=== PATIENT | female | born 1970 | race Caucasian/White ===

== ENCOUNTER 2016-12-06 18:13 | Inpatient (IN) | payer OTHER ==
[~2016-12-06] VITALS: Ht 165.1 cm; Wt 61.2 kg
--- NOTE | ~2016-12-06 | ER ---
PATIENT'S NAME: DAMIAN [facility] AGE: 46 Y [address] ROOM: [place] [address] LOCATION: [facility] ADMIT DATE: 12/06/2016 ER/Outpatient Report DISCHARGE DATE: FAMILY PHYSICIAN: PHYSICIAN, UNKNOWN ATTENDING PHYSICIAN: Jhoan Gil TIME OF ARRIVAL: 1813 hours. TIME SEEN: The patient seen on arrival. CHIEF COMPLAINT: This is a 46-year-old female with a history of hypertension. History is limited and the patient was initially seen at [facility] after becoming unresponsive, she was found to have a pontine hemorrhage, and was sent here for Neurosurgical consultation. PHYSICAL EXAMINATION: GENERAL: Upon arrival, the patient was deeply comatose, unresponsive, and intubated. HEENT: Pupils were 2-mm and equal. There are no extraocular movements. LUNGS: She had diminished breath sounds in both bases. ABDOMEN: Soft. EXTREMITIES: Had no gross deformity. NEUROLOGIC: She had a slight posturing to painful stimulus; otherwise, no response. EMERGENCY DEPARTMENT COURSE: Dr. Gil was called, arrived promptly, evaluated the patient and made arrangements to take the patient to the OR. The patient was markedly hypertensive on arrival. A Cardene drip was initiated. ASSESSMENT: Intraparenchymal brain hemorrhage involving primarily the tashia with resultant coma. PLAN: Surgical management by Dr. Gil. LEELA MOISE MD PATIENT'S NAME: DAMIAN [facility] AGE: 46 Y [address] ROOM: [address] [address] LOCATION: [facility] ADMIT DATE: 12/06/2016 ER/Outpatient Report DISCHARGE DATE: FAMILY PHYSICIAN: PHYSICIAN, UNKNOWN ATTENDING PHYSICIAN: Jhoan Gil/darrin /[id number] d: 12/07/16 0431 t: 12/07/16 0455, OUTPATIENT REPORT
--- NOTE | ~2016-12-06 | ENPV ---
Vascular Lower Extremities DVT Study Procedure Demographics Patient Name GRECIA SALGADO Date of Study 12/08/2016 Patient Number [id number] Gender Female Date of 1970 Age 46 Visit Number [id number] Height Accession Number [id number] Weight Room Number G6214 BSA BMI Referring Louise Weeks Physician Physician Physician Ordering Physician Louise Perry Filter Tip Inspector Mercantile Reporter Lit Song BS, RT Conclusions Summary TECHNIQUE: The veins of the lower extremities on the right and the left were evaluated from the groin to the ankle using sen scale, compression, and augmentation. Venous hemodynamics were evaluated with color flow and spectral Doppler. FINDINGS: The deep veins of the legs bilaterally show normal color flow and compressibility without thrombosis. IMPRESSION: NEGATIVE BILATERAL LOWER EXTREMITY VENOUS DOPPLER. Procedure Type of Study: Veins:Lower Extremities DVT Study, Venous Duplex Lower Extremity Bilateral. Indications for Study:Stroke. Additional Indications:Immobility Patient Status:Routine. Study Location:Inpatient Portable. Technical Quality:Adequate visualization. Velocities are measured in cm/s ; Diameters are measured in cm Right Lower Extremities DVT Study Measurements Right 2D and Doppler Measurements + + + + +------+------+ + !Location !Visualized!Compressibility!Thrombosis!Signal!Reflux!Reflux ! ! ! ! ! ! ! !(sec) ! + + + + +------+------+ + !GSV Thigh !Yes !Yes !None !Phasic!No ! ! + + + + +------+------+ + !Common !Yes !Yes !None !Phasic!No ! ! !Femoral ! ! ! ! ! ! ! + + + + +------+------+ + !Prox !Yes !Yes !None !Phasic!No ! ! !Femoral ! ! ! ! ! ! ! + + + + +------+------+ + !Mid Femoral!Yes !Yes !None !Phasic!No ! ! + + + + +------+------+ + !Dist !Yes !Yes !None !Phasic!No ! ! !Femoral ! ! ! ! ! ! ! + + + + +------+------+ + !Popliteal !Yes !Yes !None !Phasic!No ! ! + + + + +------+------+ + !Gastroc !Yes !Yes !None !Phasic!No ! ! + + + + +------+------+ + !PTV !Yes !Yes !None !Phasic!No ! ! + + + + +------+------+ + !Peroneal !Yes !Yes !None !Phasic!No ! ! + + + + +------+------+ + Left Lower Extremities DVT Study Measurements Left 2D and Doppler Measurements + + + + +------+------+ + !Location !Visualized!Compressibility!Thrombosis!Signal!Reflux!Reflux ! ! ! ! ! ! ! !(sec) ! + + + + +------+------+ + !GSV Thigh !Yes !Yes !None !Phasic!No ! ! + + + + +------+------+ + !Common !Yes !Yes !None !Phasic!No ! ! !Femoral ! ! ! ! ! ! ! + + + + +------+------+ + !Prox !Yes !Yes !None !Phasic!No ! ! !Femoral ! ! ! ! ! ! ! + + + + +------+------+ + !Mid Femoral!Yes !Yes !None !Phasic!No ! ! + + + + +------+------+ + !Dist !Yes !Yes !None !Phasic!No ! ! !Femoral ! ! ! ! ! ! ! + + + + +------+------+ + !Popliteal !Yes !Yes !None !Phasic!No ! ! + + + + +------+------+ + !Gastroc !Yes !Yes !None !Phasic!No ! ! + + + + +------+------+ + !PTV !Yes !Yes !None !Phasic!No ! ! + + + + +------+------+ + !Peroneal !Yes !Yes !None !Phasic!No ! ! + + + + +------+------+ + Signature dtt: Olegario Khan dtd: 12/08/16 0826 Physician Self Edit
--- NOTE | ~2016-12-06 | CON ---
PATIENT'S NAME: DAMIAN [facility] AGE: 46 Y [address] ROOM: [place] [address] LOCATION: GICU ADMIT DATE: 12/06/2016 Consultation DISCHARGE DATE: FAMILY PHYSICIAN: PHYSICIAN, UNKNOWN ATTENDING PHYSICIAN: Jhoan Gil DATE OF CONSULTATION: 12/06/2016 REFERRING PHYSICIAN: Juan F Clark MD CONSULTATION NOTE Consultation for Neurointensive Care. REQUESTING PHYSICIAN: Consultation requested by Dr. Gil. CHIEF COMPLAINT: Intraparenchymal hemorrhage in the tashia and brainstem. HISTORY OF PRESENT ILLNESS: The patient is a 46-year-old female, who was transferred in from [facility] today. Apparently she was found unresponsive at the [facility] when agonal breathing. She has had a history of headaches and hypertension for which she had been not taking her medications for over a year. She was found to have a GCS about 5 on the scene and was found to have agonal breathing, heart rates in the 60s and 70s, and was taken into [facility] by the EMS where she was intubated there by a AIRPLANE NAVIGATOR. Her initial blood pressures there around upper 190s to over 110s. She was found to have this hemorrhage on CT and was flown to [facility]. She has had received some Versed, fentanyl, Zofran, labetalol, propofol, and mannitol prior to arrival. She was seen upon arrival in the emergency room. PAST MEDICAL HISTORY: Hypertension. ALLERGIES: PENICILLIN. MEDICATIONS: None. 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 PATIENT'S NAME: DAMIAN [facility] AGE: 46 Y [address] ROOM: [place] [id number] LOCATION: [facility] ADMIT DATE: 12/06/2016 Consultation DISCHARGE DATE: FAMILY PHYSICIAN: PHYSICIAN, UNKNOWN ATTENDING PHYSICIAN: Jhoan Gil REVIEW OF SYSTEMS: Unobtainable. PHYSICAL EXAMINATION: VITAL SIGNS: Heart rate is 46, blood pressure is 195/105, saturations of 100%, and respirations 16 on a ventilator. Temperature is around 96.0 degrees Fahrenheit tympanic. GENERAL: She has an endotracheal tube of 7.5 at about 20 cm at the lip. HEENT: Head; no signs of hematoma of her abrasions. NECK: No signs of JVD. Trachea is midline. Palpable off the sternal notch. CHEST: Clear to auscultation bilaterally. Bradycardic with S1 and S2. ABDOMEN: Soft. Nondistended. Hypoactive bowel sounds. EXTREMITIES: Trace to 1+ edema in the bilateral lower extremities. SKIN: Appears to be intact. Abrasions noted. NEUROLOGIC: Pupils are 3 and fixed. Not responsive to painful stimuli. There is no eye opening. No following of commands. IMAGING STUDIES: CT scan shows a large intraparenchymal hemorrhage centered at the tashia and brainstem. There is extra-axial extension of the 4th ventricle with mild hydrocephalus. LABORATORY DATA: INR is 1.1. PTT is 26. Troponins 0.03, CK-MB is 3.6. Sodium is 137, potassium 2.6, chloride 106, CO2 of 21, glucose is 198, creatinine 0.7, and BUN 17. White cell count 16, hemoglobin is 13, hematocrit is 41, and platelets are 246,000 with a negative test, and the urine drug screen was negative. These were all done at [facility]. ASSESSMENT AND PLAN: 1. Intraparenchymal hemorrhage centered around the brainstem and tashia. Probable hypertensive episode but could not exclude other causes such as the malformation, however, at this point, treatment will be the same, it appears to be a very devastating injury with the poor prognosis of any functional recovery or possibility of waking up. First thing we should do is to lower her blood pressure. We will start her on Cardene drip to try to maintain systolic blood pressures below 160 and ideally below 140. We may need some more medications as I improve her bradycardia. We will start this with the atropine 0.5 mg. Other medications to help with the blood pressure may include some hydralazine and Vasotec. Additionally it looks like this patient will be developing hydrocephalus so discussion of care with Dr. Gil will be to place an ICP monitor with external ventricular drain to help manage the developing hydrocephalus. 2. Hypertensive emergency. PATIENT'S NAME: GRECIA SLAGADO [facility] AGE: 46 Y [address] ROOM: [place] [address] LOCATION: GICU ADMIT DATE: 12/06/2016 Consultation DISCHARGE DATE: FAMILY PHYSICIAN: PHYSICIAN, UNKNOWN ATTENDING PHYSICIAN: Jhoan Gil 3. Acute respiratory failure. Hypoxic and hypercarbic. 4. Loss of consciousness. 5. Hypokalemia. 6. Hypothermia. We will work on rewarming her till we obtained normal thermia. 7. Prophylaxis will be GI prophylaxis and SCDs ,TEDS . There is no anticoagulation ready at this time. After surgery, she will be taken to the ICU. I spent about 40 minutes of critical care time, evaluating labs, managing blood pressure, developing plan of care, and examining the patient. JUAN F CLARK MD JJP/modl /[id number] d: 12/07/16 1531 t: 12/18/16 1712, CONSULTATION REPORT
--- NOTE | ~2016-12-06 | CON ---
PATIENT'S NAME: GRECIA SALGADO [facility] AGE: 46 Y [address] ROOM: [place] [address] LOCATION: GICU ADMIT DATE: 12/06/2016 Consultation DISCHARGE DATE: FAMILY PHYSICIAN: PHYSICIAN, UNKNOWN ATTENDING PHYSICIAN: Jhoan Gil DATE OF CONSULTATION: 12/16/2016 REFERRING PHYSICIAN: Juan F Clark MD CHIEF COMPLAINT/REASON FOR CONSULTATION: Request for medical management in the setting of catastrophic intracerebral hemorrhage and subsequent donor management. HISTORY OF PRESENTING ILLNESS: This 46-year-old white female with a longstanding history of hypertension, untreated, and chronic headaches, was admitted to [facility] on 12/06/2016 after transferred from [facility]. She collapsed and was found to have a large intracerebral hemorrhage. She was unresponsive and demonstrating agonal breathing. She was admitted here by Dr. Gil and underwent right frontal ventriculostomy and ICP monitor. Her clinical progress has been poor. She has been managed by neuro-intensive care and Neurosurgery. Despite aggressive supportive cares, her clinical condition has failed to improve significantly. She has developed hydrocephalus and has been persistently hypertensive. After discussion with the family, it was felt that the patient would not want to continue supportive cares and request for withdrawal of cares has been made. At the family's request and based on previous donor status, the organ retrieval service has also been involved. I have been requested to assist in medical management and supervision of donor management care. On my arrival to the floor, the patient is intubated and unresponsive. Dr. Taylor had been consulted for placement of central line and arterial line, and those have been completed. ALLERGIES: PENICILLIN. ILLNESSES: 1. Hypertension. 2. Migraine headaches. 3. Medical noncompliance. 4. Intraparenchymal brain stem bleed on 12/06/2016. CURRENT MEDICATIONS: 1. Propofol for sedation. PATIENT'S NAME: GRECIA SALGADO [facility] AGE: 46 Y [address] ROOM: [place] [address] LOCATION: [facility] ADMIT DATE: 12/06/2016 Consultation DISCHARGE DATE: FAMILY PHYSICIAN: PHYSICIAN, UNKNOWN ATTENDING PHYSICIAN: Jhoan Gil 2. DuoNeb q.4 hours. 3. Acetylcysteine 600 mg q.4 hours per feeding tube. 4. Labetalol 200 mg per feeding tube b.i.d. 5. Milk of magnesia 30 mL p.o. daily p.r.n. 6. Potassium 20 mEq per feeding tube q.8 hours. 7. Versed 1 to 2 mg IV p.r.n. sedation. 8. Lisinopril 10 mg per feeding tube daily. 9. Enalapril at 1.25 mg IV q.6 hours p.r.n. 10. Amlodipine 10 mg per feeding tube daily. 11. Albuterol 6 puffs per ETT q.6 hours p.r.n. 12. Atropine 0.5 mg IV q.hour p.r.n. 13. Phenylephrine for pressor support. 14. Fentanyl 50 mcg IV q.30 minutes p.r.n. pain or restlessness or discomfort. 15. Hydralazine 10 mg IV q.30 minutes p.r.n. systolic blood pressure greater than 180. 16. Labetalol 5 to 10 mg IV q.10 minutes p.r.n. systolic blood pressure greater than 180. 17. Acetaminophen 650 mg per feeding tube q.4 hours p.r.n. 18. Artificial tears p.r.n. 19. Nicardipine drip p.r.n. 20. Carafate 1 g per feeding tube q.6 hours. 21. Levaquin 750 mg IV daily x10 days. FAMILY HISTORY: Significant for heart disease in her mother. Father had COPD. 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 She has a significant history of smoking tobacco approximately 20 pack years. No significant history of alcohol use and no illicit drug use. She has some family support, which is fragmented. REVIEW OF SYSTEMS: Unobtainable secondary to the patient's obtunded status. OBJECTIVE: VITAL SIGNS: Temperature 101.1, pulse 96, respirations 26, blood pressure 120/58, weight is 66.1 kilos. GENERAL: She is ill appearing, lying on the bed, unresponsive, on the ventilator. SKIN: Supple, pink, warm, and dry. There are no obvious rashes. She does have some puncture site at the right neck with a little bit of exudative debris but no mike erythema. HEENT: Otherwise, normocephalic. Sclerae nonicteric. Pupils are equal, PATIENT'S NAME: GRECIA SALGADO [facility] AGE: 46 Y [address] ROOM: [id number] [place], [place] [address] LOCATION: [facility] ADMIT DATE: 12/06/2016 Consultation DISCHARGE DATE: FAMILY PHYSICIAN: PHYSICIAN, UNKNOWN ATTENDING PHYSICIAN: Jhoan Gil round, sluggish but reactive to light. Nasal turbinates normal in appearance. Oropharynx clear. Mucous membranes are pink and dry. The ET tube is in place. NECK: Supple. No masses or adenopathy. No thyromegaly. No JVD. CHEST: Wall is symmetrical. HEART: Regular with no significant murmurs. LUNGS: Coarse, diminished. Long expiratory phase. No wheezes, no crackles. No areas of consolidation. ABDOMEN: Soft, flat, nontender. Bowel sounds present. No mass or hepatosplenomegaly. and RECTAL: Not done. EXTREMITIES: Display no significant clubbing, cyanosis, or edema. NEUROLOGIC: Unresponsive. LABORATORY AND X-RAY DATA: CBC showed a white blood cell count 17.9, hemoglobin 11.4, hematocrit 33.7, platelets 265. Chemistries revealed a BUN and creatinine of 27 and 0.8 respectively, sodium and potassium of 138 and 4.2, chloride and CO2 are 106 and 25, calcium 8.8, glucose 125. AST and ALT of 51 and 93 respectively, bilirubin is 0.2. Albumin was low at 1.3. Hemoglobin A1c is pending. ABGs revealed a pH of 7.49, pCO2 of 34, pO2 of 149, base excess of 2.8. ASSESSMENT AND PLAN: 1. Intracerebral hemorrhage with hydrocephalus, status post ventricular shunt placement with catastrophic brain injury. The patient is currently hemodynamically stable on supportive care. Family has requested for withdrawal of cares, but to pursue organ donation. We will continue with ventilatory support and supportive medical measures in the interest of organ donation as requested by the family. We will follow along with the donor management and provide any necessary assistance. Tube feedings have been discontinued. We will await laboratory evaluations, encourage pulmonary hygiene and monitor. 2. Essential hypertension. Currently, adequately controlled. We will continue with the same regimen for now. 3. MSSA in the sputum. There is no radiographic evidence for pneumonia. Continue with levofloxacin. 4. Elevated liver function tests, mild. Etiology is unclear, but probably related to hypoperfusion. 5. Acute hypoxic respiratory failure. Continue ventilatory support as above and encourage good pulmonary hygiene in the interest of organ preservation. 6. End of life care. We will attempt to meet with family to discuss and provide ongoing support. The decision has been made for withdrawal of cares and organ donation as outlined above. We will continue to try to provide the necessary support for both family and donor management PATIENT'S NAME: GRECIA SALGADO [facility] AGE: 46 Y [address] ROOM: [address] [address] LOCATION: [facility] ADMIT DATE: 12/06/2016 Consultation DISCHARGE DATE: FAMILY PHYSICIAN: PHYSICIAN, UNKNOWN ATTENDING PHYSICIAN: Jhoan Gil services. MD CHIKIS RICARDO/modl /[id number] d: 12/17/162 t: 12/17/16 2019, CONSULTATION REPORT
--- NOTE | ~2016-12-06 | ENPV ---
Vascular Lower Extremities DVT Study Procedure Demographics Patient Name GRECIA SALGADO Date of Study 12/15/2016 Patient Number [id number] Gender Female Date of 1970 Age 46 Visit Number [id number] Height Accession Number [id number] Weight Room Number G6214 BSA BMI Referring Louise Perry MD Interpreting Alphonso Bledsoe MD Physician Physician Physician Ordering Physician Louise Perry Glass Cut Off Tender Supervisor Plate Forming Lit Song BS, RT Conclusions Summary No evidence of deep vein thrombosis or superficial thrombophlebitis in the lower extremities bilaterally . Procedure Type of Study: Veins:Lower Extremities DVT Study, Venous Duplex Lower Extremity Bilateral. Indications for Study:Extended bedrest. Additional Indications:Immobility Patient Status:Routine. Study Location:Inpatient Portable. Technical Quality:Adequate visualization. Velocities are measured in cm/s ; Diameters are measured in cm Right Lower Extremities DVT Study Measurements Right 2D and Doppler Measurements + + + + +------+------+ + !Location !Visualized!Compressibility!Thrombosis!Signal!Reflux!Reflux ! ! ! ! ! ! ! !(sec) ! + + + + +------+------+ + !GSV Thigh !Yes !Yes !None !Phasic!No ! ! + + + + +------+------+ + !Common !Yes !Yes !None !Phasic!No ! ! !Femoral ! ! ! ! ! ! ! + + + + +------+------+ + !Prox !Yes !Yes !None !Phasic!No ! ! !Femoral ! ! ! ! ! ! ! + + + + +------+------+ + !Mid Femoral!Yes !Yes !None !Phasic!No ! ! + + + + +------+------+ + !Dist !Yes !Yes !None !Phasic!No ! ! !Femoral ! ! ! ! ! ! ! + + + + +------+------+ + !Popliteal !Yes !Yes !None !Phasic!No ! ! + + + + +------+------+ + !Gastroc !Yes !Yes !None !Phasic!No ! ! + + + + +------+------+ + !PTV !Yes !Yes !None !Phasic!No ! ! + + + + +------+------+ + !Peroneal !Yes !Yes !None !Phasic!No ! ! + + + + +------+------+ + Left Lower Extremities DVT Study Measurements Left 2D and Doppler Measurements + + + + +------+------+ + !Location !Visualized!Compressibility!Thrombosis!Signal!Reflux!Reflux ! ! ! ! ! ! ! !(sec) ! + + + + +------+------+ + !GSV Thigh !Yes !Yes !None !Phasic!No ! ! + + + + +------+------+ + !Common !Yes !Yes !None !Phasic!No ! ! !Femoral ! ! ! ! ! ! ! + + + + +------+------+ + !Prox !Yes !Yes !None !Phasic!No ! ! !Femoral ! ! ! ! ! ! ! + + + + +------+------+ + !Mid Femoral!Yes !Yes !None !Phasic!No ! ! + + + + +------+------+ + !Dist !Yes !Yes !None !Phasic!No ! ! !Femoral ! ! ! ! ! ! ! + + + + +------+------+ + !Popliteal !Yes !Yes !None !Phasic!No ! ! + + + + +------+------+ + !Gastroc !Yes !Yes !None !Phasic!No ! ! + + + + +------+------+ + !PTV !Yes !Yes !None !Phasic!No ! ! + + + + +------+------+ + !Peroneal !Yes !Yes !None !Phasic!No ! ! + + + + +------+------+ + Signature dtt: BRYCE GRAY dtd: 12/15/16 [facility] Physician Saurav Antonio
--- NOTE | ~2016-12-06 | HP ---
PATIENT'S NAME: GRECIA SALGADO [facility] AGE: 46 Y [address] 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 Prior to that however, she has had a 2-week history of severe headaches and she has got a history of hypertension, but was not taking antihypertensive medications primarily because she says she could not afford it. When the EMT got to the [facility] where she was, she was completely unresponsive, they went ahead and intubated her, [place] Coma Score was recorded initially as 5, and was taken to the emergency room in [place]. On getting to the emergency room, investigations carried out included a CT scan of the brain, which showed a brainstem hemorrhage. She was given half-a-gram of mannitol per kg body weight and sent here. PAST MEDICAL HISTORY: Apart from hypertension, there was nothing else that we could get. FAMILY HISTORY: Could not be carried out primarily because of the neurological status. SOCIAL HISTORY: Could not be carried out primarily because of the neurological status. REVIEW OF SYSTEMS: Could not be carried out primarily because of the neurological status. PHYSICAL EXAMINATION: VITAL SIGNS: In the emergency room, she is a 46-year-old lady who was being bagged, blood pressure was 195/105, and the pulse was 47. HEENT: The pupils were 1-mm, they reacted sluggishly to light, they were equal. NECK: No bruits audible in the neck. No masses palpable in the neck. CHEST: Clear. HEART: Rate was regular; although, she was bradycardic. NEUROLOGICAL: Examination was limited. Sensory exam, we could not get one because of her neurological deficits. Motor response, she will withdraw both lower extremities to painful stimuli and in the upper extremities she did not [facility] 46 Y [address] ROOM: [address] [address] LOCATION: [facility] ADMIT DATE: 12/06/2016 History & Physical DISCHARGE DATE: FAMILY PHYSICIAN: PHYSICIAN, UNKNOWN ATTENDING PHYSICIAN: Jhoan Gil have any response in the upper limbs, but the lower limbs were extended. LABORATORY DATA: I reviewed the CT scan of the brain. The CT scan of the brain was just massive brainstem hemorrhage with early hydrocephalus. RECOMMENDATION: My recommendation is that we should just go ahead and put a ventricular drain in, which will help us not only to control the intracranial pressure if it goes up, but also to manage the hydrocephalus if it gets worse. I discussed the situation with the sister and her mother and they both agree that we should go ahead and carry out the procedure. MD SUSANNA BROWN/darrin /[id number] D: [id number] T: [id number] HISTORY & PHYSICAL
--- NOTE | ~2016-12-06 | OR ---
PATIENT'S NAME: DAMIAN [facility] AGE: 46 Y [address] ROOM: [place] [address] LOCATION: [facility] ADMIT DATE: 12/06/2016 OR/Procedure Report DISCHARGE DATE: FAMILY PHYSICIAN: PHYSICIAN, UNKNOWN ATTENDING PHYSICIAN: Jhoan Gil SURGEON: David Loera MD GRAIN RECEIVER: DATE OF PROCEDURE: 12/16/2016 PROCEDURES: 1. Fiberoptic bronchoscopy with bronchoalveolar lavage. 2. Left internal jugular central venous catheter insertion. 3. Left radial arterial line insertion. CONSENT: The risks and benefits of the procedure were discussed with her next of kin. He agrees to proceed with the procedures. PROCEDURES IN DETAIL: PROCEDURE #1: Fiberoptic bronchoscopy: Bronchoscope was introduced through a size 7 ET tube into the tracheobronchial tree. The patient tolerated the procedure well. There were no immediate complications. FINDINGS: The visualized portion of the trachea appears normal in caliber. There were no endobronchial lesions or secretions. The eula is sharp, nonsplayed. The right mainstem is patent. There were thick white secretions, which were suctioned out, the right upper lobe takeoff is about 1.5-2 cm, probably 1.75 cm from the eula. The right upper lobe consists of 3 segments anatomically correct. There are white secretions. The bronchus intermedius is patent. The right middle lobe was anatomically correct with 2 segments. There are white secretions which were suctioned out and the right lower lobe was inspected 5 segments. There are white loose secretions, which were suctioned out. The mucosa in the right lower lobe seems to be inflamed and reddish more so than the rest of the right lung. The left mainstem is patent. There are no endobronchial lesions or secretions. The left upper lobe had slight loose white secretions which were suctioned out. The lingula is patent with no endobronchial lesions or secretions. The left lower lobe was inspected. There were no endobronchial lesions or secretions, which were anatomically correct. After the bronchoscope was wedged into the right lower lobe anterior basal segment, a 10 mL lavage was done, about 7 mL were obtained and sent to Gram stain and cultures. The bronchoscope was withdrawn. There were no immediate complications. PROCEDURE #2: Left internal jugular central venous catheter insertion. PATIENT'S NAME: DAMIAN [facility] AGE: 46 Y [address] ROOM: [facility] [place] [facility] [place], [place] [address] LOCATION: [facility] ADMIT DATE: 12/06/2016 OR/Procedure Report DISCHARGE DATE: FAMILY PHYSICIAN: PHYSICIAN, UNKNOWN ATTENDING PHYSICIAN: Jhoan Gil CONSENT: As above. DESCRIPTION OF PROCEDURE: After the informed consent, proper time-out was called by me and the nursing staff. The patient was put in Trendelenburg position. The left internal jugular area was prepped and draped in the usual fashion, under real-time ultrasound. The area was infiltrated with 1% lidocaine. After that, under real-time ultrasound, using a Spacebikiniq machine, the left internal jugular vein was punctured using an 18-gauge needle. A 0.035 J-tipped wire was inserted through the needle without any resistance, then it was removed and 5-Turkish soft tissue dilator was advanced over the wire after a small hugo was made in the skin. The dilator was removed and the catheter was inserted over the wire without any resistance. The 3 ports of the catheter was aspirated for dark venous blood and flushed with sterile saline. The catheter was sutured in place. There were no immediate complications. Chest x-ray is pending. PROCEDURE #3: Left radial arterial line placement. DESCRIPTION OF PROCEDURE: After the informed consent, proper time-out was called by me and the nursing staff. The left radial area was prepped and draped in the usual fashion. Under real time ultrasound, the 18-gauge Arrow kit catheter was introduced into the radial artery. Good blood return was obtained and the catheter was advanced easily. The catheter was hooked up to the monitor, which revealed good waveform and good blood return. The patient tolerated the procedure well. There were no immediate complications. Thank you for allowing me to participate in the care of this patient. MD ANNIE CHEN/darrin /[id number] d: 12/17/16 0243 t: 07/05/17 1007, OPERATIVE SUMMARY
--- NOTE | ~2016-12-06 | OR ---
PATIENT'S NAME: GRECIA SALGADO [facility] AGE: 46 Y [address] 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 OPERATION PROPOSED AND PERFORMED: Right frontal ventriculostomy and ICP monitor. DESCRIPTION OF PROCEDURE: Under general anesthesia, the patient was positioned supine. The right frontal region was shaved, prepped, and draped in the usual fashion. Next, a linear incision was then carried out along the midpupillary line just anterior to the coronal suture. The pericranium was incised and reflected. A twist drill hole was carried out at this site. The dura was cauterized and incised. Next, a Codman ICP and ventricular catheter combination was passed through a separate stab wound and brought out through the incision in the right frontal region. After incising the dura, the ventricular catheter was then passed into the lateral ventricle. Prior to doing that, however, we had zeroed the system. Next, the ventricular catheter was then connected to a drainage bag. Initial intracranial pressure after we drained some CSF off was 6 cm of water. The wound was then irrigated with normal saline and closed in a single layer using 3-0 Prolene. The ventricular catheter was kept in position by putting a suture through the scalp and turning it around the catheter to put it in position. The patient tolerated the procedure well and was taken to the intensive care unit. Postoperatively, she is going to be managed in the ICU by Dr. Clark, and the primary aim would be to: 1. Keep the ICP normal. 2. Drain the ventricles if the ICP goes up, or primarily keep the drainage bag at 10 cm. If the ICP goes beyond 10, it will drain. 3. Control her blood pressure to keep it at least to be not more than 150 systolic. I should point out that she is already on Cardene drip. PATIENT'S NAME: GRECIA SALGADO [facility] AGE: 46 Y [address] ROOM: [id number] [place] [id number] LOCATION: [facility]ICU ADMIT DATE: 12/06/2016 OR/Procedure Report DISCHARGE DATE: FAMILY PHYSICIAN: PHYSICIAN, UNKNOWN ATTENDING PHYSICIAN: Jhoan Gil MD SUSANNA BROWN/darrin /[id number] d: 12/07/16100 t: 12/11/16 1517, OPERATIVE SUMMARY
--- NOTE | ~2016-12-06 | DS ---
PATIENT'S NAME: GRECIA SALGADO [facility] AGE: 46 Y [address] 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 On the day of admission, she suddenly collapsed, and was brought to the Emergency Room in [place] from where she was then transported here. a relevant part of_her_past medical history is that she has been complaining of severe headaches for two weeks, and she has a history of hypertension, but was not taking any antihypertensive medications because she said she could not afford the medication. Prior to being transported here from [place], she was given half a gram of mannitol per kilogram of body weight, intubated, and ventilated. At the time of assessment here, she had a withdrawal response to painful stimuli in the lower extremities, but was flaccid in the upper extremities. A CT scan of the brain that was done showed a hemorrhage in the brainstem with __acute hydrocephalus. We, therefore, took her straight to the Operating Room, put in a ventricular drain with ICP monitoring, and transferred her to the Intensive Care Unit, where we monitored her intracranial pressure and we were able to easily control this by draining CSF when indicated. She really did not make any progress during her stay in the Intensive Care Unit. The best we got was a decerebrate response in the upper extremities and withdrawal response in the lower extremities. Eventually, the family decided to take her off the ventilator, and when this was done, she . FINAL DIAGNOSES: 1. Hypertensive hemorrhage of the brain involving the brainstem. 2. Acute hydrocephalus. MD SUSANNA BROWN/darrin /[id number] d: 12/27/16 2342 t: 01/30/17 1221, DISCHARGE SUMMARY
[2016-12-06 22:25] LABS: HEMATOCRIT 36.3 % (33.0-46.0); HEMOGLOBIN 13.2 g/dL (10.0-15.0)
[2016-12-06 22:26] LABS: BICARBONATE 25.4 mmol/L (18.0-23.0); PCO2 41 mmHg (35-45); PO2 140 mmHg (80-90)
[2016-12-06 22:42] LABS: ALBUMIN 2.2 gm/dL (3.5-5.0); BLOOD UREA NITROGEN 13 mg/dL (6-24); CHLORIDE 114 mMol/L (96-110); CO2 24 mMol/L (22-32); CREATININE 0.7 mg/dL (0.5-1.1); ESTIMATED GFR (MDRD EQUATION) > 60; PHOSPHORUS 4.2 mg/dL (2.5-4.9)
[2016-12-06] MEDS ORDERED: EXCEDRIN EXTRA1 TAB PO (22:42)
[2016-12-06 22:43] LABS: ANION GAP 10.8 (10.0-19.0); CALCIUM 7.2 mg/dL (8.5-10.5); POTASSIUM 2.8 mMol/L (3.7-5.1); SODIUM 146 mMol/L (135-145)
[2016-12-07 04:31] LABS: BICARBONATE 24.7 mmol/L (18.0-23.0); PCO2 34 mmHg (35-45); PO2 131 mmHg (80-90)
[2016-12-07 04:34] LABS: BASOPHIL # 0.1 K/uL (0.0-0.2); BASOPHIL % 0.5 %; EOSINOPHIL # 0.1 K/uL (0.0-0.5); EOSINOPHIL % 0.4 %; HEMATOCRIT 36.1 % (33.0-46.0); HEMOGLOBIN 13.1 g/dL (10.0-15.0); IMMATURE GRANULOCYTE # 0.1 K/uL (0.0-0.3); IMMATURE GRANULOCYTE % 0.5 %; LYMPHOCYTE # 1.7 K/uL (0.8-4.0); LYMPHOCYTE % 10.2 %; MCH 31.5 pg (27.0-34.0); MCHC 36.3 gm/dL (32.0-36.5); MCV 86.8 fl (83.0-98.0); MONOCYTE # 1.6 K/uL (0.0-1.0); MONOCYTE % 9.2 %; MPV 12.2 fl (9.4-12.4); NEUTROPHIL # (ANC) 13.3 K/uL (1.8-7.8); NEUTROPHIL % 79.2 %; NRBC % 0 /100WBC (0-0.00); PLATELET COUNT 226 K/uL (150-450); RBC 4.16 M/uL (3.50-5.50); RDW-CV 12.7 % (11.9-14.6)
[2016-12-07 04:42] LABS: INR - (THERAPEUTIC) 1.06 (0.92-1.07); PROTIME 11.1 SECONDS (9.8-11.4)
[2016-12-07 04:49] LABS: ALBUMIN 2.2 gm/dL (3.5-5.0); ALK PHOS 63 IU/L (33-138); ALT 18 IU/L (12-78); ANION GAP 11.4 (10.0-19.0); AST 14 IU/L (10-40); BLOOD UREA NITROGEN 13 mg/dL (6-24); CALCIUM 7.2 mg/dL (8.5-10.5); CHLORIDE 117 mMol/L (96-110); CO2 24 mMol/L (22-32); CREATININE 0.7 mg/dL (0.5-1.1); ESTIMATED GFR (MDRD EQUATION) > 60; POTASSIUM 3.4 mMol/L (3.7-5.1); SODIUM 149 mMol/L (135-145); TOTAL BILIRUBIN 0.2 mg/dL (0.0-1.5); TOTAL PROTEIN 4.6 g/dL (6.0-8.4); WBC 16.8 K/uL (4.0-11.0)
--- NOTE | 2016-12-07 05:30 | NUR ---
PT. ARRIVED TO ICU INTUBATED AT 2014. PT. INTUBATED WITH 7.5 ETT 21 @ LIP, SECURED WITH ETAD. FIO2 DOWN TO 30%. BREATH SOUNDS ARE CLEAR AND DIMINISHED T/O. ETCO2 31-36. SUCTIONED A SCANT AMOUNT OF CLEAR SECRETIONS. WILL CONTINUE TO FOLLOW UNTIL FURTHER NOTICE.
--- NOTE | 2016-12-07 05:56 | NUR ---
Significant Event: Patient sedated/comatose. Does not open eyes. Pupils 3mm/brisk bilaterally. Decerebrate posturing in BUEs. BLEs abnormal flexion and occasional extension. Spontaneous cough noted. No gag. ICP/ventric intact. Ventric open at all times at [id number], currently draining blood-tinged csf. ICP <10 throughout shift. HR 40-70, atropine given x1. BP hypertensive. 10mg labetolol given x4, hydralazine given x2. Cardene drip started this shift, currently at 3mg/hr. Afebrile. LE edema noted. A/C on vent, lung sounds diminished. Bowel sounds rare, OG to LIS, no bm this shift. Nuñez intact, dependant bag changed to urometer this shift. R)IJ, L)arterial line, PIV x2 intact. 40meq kcl given this shift. Propofol for sedation, currently at 20mcg/kg/min. Follow up: Continue hourly monitoring.
--- NOTE | 2016-12-07 16:18 | NUR ---
Significant Event: Patient remains intubated without sedation. Propofol off at 1000. Does not follow commands. Extends in BUE and withdraws in BLE. LLE extends occasionally. ICP/Ventric intact. ICP 4-10. Ventric drain 88ml CSF clear to pink tinged. [id number]. Cardiazem off at 1600. HR 60's. SBP 120-150. Gave PRN fentanylx1, prn hydralazine x2, and PRN vasotec x1. Lungs asclutated clear/diminished. Active bowel sounds. Osmolite 1.5 started at 1430 at 10ml/h, to reach a goal rate of 50ml/h. No residual. No BM. Afebrile.Accuchecks q4h, to monitor only: 119,106,112. Follow up:Continue. Increase TF by 10ml 4h.
[2016-12-07 16:36] LABS: BLOOD UREA NITROGEN 14 mg/dL (6-24); CO2 27 mMol/L (22-32); CREATININE 0.8 mg/dL (0.5-1.1); ESTIMATED GFR (MDRD EQUATION) > 60; POTASSIUM 3.3 mMol/L (3.7-5.1)
[2016-12-07 16:37] LABS: ANION GAP 9.3 (10.0-19.0); CALCIUM 7.3 mg/dL (8.5-10.5); CHLORIDE 118 mMol/L (96-110); SODIUM 151 mMol/L (135-145)
[2016-12-08 04:45] LABS: BICARBONATE 23.2 mmol/L (18.0-23.0); LACTATE 0.8 mEq/L (0.50-1.60); PCO2 35 mmHg (35-45); PO2 133 mmHg (80-90)
[2016-12-08 04:51] LABS: BASOPHIL # 0.1 K/uL (0.0-0.2); BASOPHIL % 0.5 %; EOSINOPHIL % 0.3 %; HEMATOCRIT 34.6 % (33.0-46.0); HEMOGLOBIN 11.6 g/dL (10.0-15.0); IMMATURE GRANULOCYTE # 0.1 K/uL (0.0-0.3); IMMATURE GRANULOCYTE % 0.5 %; LYMPHOCYTE # 0.9 K/uL (0.8-4.0); LYMPHOCYTE % 6.7 %; MCH 30.6 pg (27.0-34.0); MCHC 33.5 gm/dL (32.0-36.5); MONOCYTE % 7.5 %; MPV 12.2 fl (9.4-12.4); NEUTROPHIL # (ANC) 11.5 K/uL (1.8-7.8); NEUTROPHIL % 84.5 %; NRBC % 0 /100WBC (0-0.00); RBC 3.79 M/uL (3.50-5.50); RDW-CV 13.2 % (11.9-14.6); WBC 13.6 K/uL (4.0-11.0)
[2016-12-08 04:59] LABS: INR - (THERAPEUTIC) 1.14 (0.92-1.07)
[2016-12-08 05:09] LABS: ALBUMIN 1.7 gm/dL (3.5-5.0); ALK PHOS 53 IU/L (33-138); ALT 17 IU/L (12-78); ANION GAP 7.7 (10.0-19.0); AST 21 IU/L (10-40); BLOOD UREA NITROGEN 17 mg/dL (6-24); CALCIUM 7.4 mg/dL (8.5-10.5); CHLORIDE 123 mMol/L (96-110); CO2 23 mMol/L (22-32); CREATININE 0.6 mg/dL (0.5-1.1); ESTIMATED GFR (MDRD EQUATION) > 60; MCV 91.3 fl (83.0-98.0); PLATELET COUNT 158 K/uL (150-450); POTASSIUM 3.7 mMol/L (3.7-5.1); SODIUM 150 mMol/L (135-145); TOTAL BILIRUBIN 0.3 mg/dL (0.0-1.5); TOTAL PROTEIN 4.4 g/dL (6.0-8.4)
--- NOTE | 2016-12-08 05:24 | NUR ---
Significant Event: Pt had some difficult to control hypertension in the beginning of the shift, Propofol gtt restarted to help control awakeness of patient and htn, along with significant overbreathing of the vent. Cardene was weaned down to 0.5mg/hr. x2 prn Labetalol IVP given. x1 dose of prn vasotec given. Pt continues to extend to upper extremties, and have abnormal flexion of bilater lower extrem. She does not open her eyes, or follow any commands. She does overbreathe vent slightly now, Family updated twice this shift. updated in the noc that sedation was restarted. Follow up: Continue
--- NOTE | 2016-12-08 05:47 | NUR ---
PT. ON VENT AT 30% WITH SATS 95-98%. ETCO2 28-34. BREATH SOUNDS ARE CLEAR AND DIMINISHED T/O. SUCTIONED A SMALL AMOUNT OF THICK CREAM SECRETIONS. WILL CONTINUE TO FOLLOW UNTIL FURTHER NOTICE.
--- NOTE | 2016-12-08 09:54 | NUR ---
A-SCREENED D/T NEW ADMIT TO ICU INTUBATED AND SEDATED WITH 3.8 ML/HR PROPOFOL (PROVIDING 91 LIPID KCALS) ICP/VENTRIC; VENTRIC OPEN ALL THE TIME. (+)BS HT: 65 IN. WT: 66.4 KG. BMI: 23.9 LABS: NA 150, K+ 3.7, GLU 144, BUN 17, DENSITOMETRIST 0.6, ALB 1.7 MEDS: ATROPINE, SUBLIMAZE, APRESOLINE, TRANDATE, CARAFATE DIET RX: NPO; 50 ML/HR OSMOLITE 1.5. TF PROVIDING 1800 KCALS, 75 GM PROTEIN, AND 914 ML FREE WATER EST NUTR NEEDS: 8799-1132 KCALS (25-30 KCALS/KG) 66-86 GM PROTEIN (1.0-1.3 GM/KG) 1 ML FLUID/KCAL D-AT NUTRITION RISK W/DIFF. SWALLOWING R/T VENT SUPPORT AEB NEED FOR ENTERAL NUTRITION I-CONTINUE W/CURRENT TF RATE M/E-GOAL: PT TO TOLERATE TF WITHOUT DIFFICULTY 1)F/U TF AND POC IN 2-3 DAYS 2)ASSIST NEEDED
[2016-12-08 16:58] LABS: BLOOD UREA NITROGEN 18 mg/dL (6-24); CALCIUM 7.8 mg/dL (8.5-10.5); CO2 21 mMol/L (22-32); CREATININE 0.7 mg/dL (0.5-1.1); ESTIMATED GFR (MDRD EQUATION) > 60; POTASSIUM 3.5 mMol/L (3.7-5.1)
[2016-12-08 17:00] LABS: ANION GAP 8.5 (10.0-19.0); CHLORIDE 124 mMol/L (96-110); SODIUM 150 mMol/L (135-145)
--- NOTE | 2016-12-08 17:02 | NUR ---
No changes to vent settings t/o shift, continued on 30% Fio2. Sxn small cream, no cough from Pt at times. Will continue to monitor
--- NOTE | 2016-12-08 17:18 | NUR ---
Significant Event: NEURO: Spontaneous movement in bilat lower extremities, right upper extremity. Extension in left upper extremity. Eyes open spontaneously, responds to stimuli superiorly and inferiorly. Does not track left and right. No corneal reflex. No gag. Spontaneous cough. Pupils equal and reactive at 2mm. CARDIO: Cardene at 7.5 mg/h to keep SBP < 140. Temp max 100.7. 500 ml NS bolus given for low urine output. Vasotec given x 1 this shift for SBP 170s. Follow up: CT scan of head in am.
--- NOTE | 2016-12-08 18:33 | NUR ---
Patient's primary emergency contact in now her sister Purvi Olivo [phone] not mother because mother is not in hospital.
[2016-12-09 04:06] LABS: BICARBONATE 21.7 mmol/L (18.0-23.0); PCO2 32 mmHg (35-45); PO2 115 mmHg (80-90)
[2016-12-09 04:27] LABS: ALK PHOS 68 IU/L (33-138); ALT 18 IU/L (12-78); ANION GAP 10.8 (10.0-19.0); AST 17 IU/L (10-40); BLOOD UREA NITROGEN 18 mg/dL (6-24); CALCIUM 7.8 mg/dL (8.5-10.5); CHLORIDE 122 mMol/L (96-110); CO2 21 mMol/L (22-32); CREATININE 0.6 mg/dL (0.5-1.1); ESTIMATED GFR (MDRD EQUATION) > 60; POTASSIUM 3.8 mMol/L (3.7-5.1); SODIUM 150 mMol/L (135-145)
[2016-12-09 04:28] LABS: ALBUMIN 1.8 gm/dL (3.5-5.0); TOTAL BILIRUBIN 0.2 mg/dL (0.0-1.5); TOTAL PROTEIN 4.9 g/dL (6.0-8.4)
[2016-12-09 04:38] LABS: BASOPHIL # 0.1 K/uL (0.0-0.2); BASOPHIL % 0.4 %; EOSINOPHIL # 0.4 K/uL (0.0-0.5); EOSINOPHIL % 2.1 %; HEMATOCRIT 35.6 % (33.0-46.0); IMMATURE GRANULOCYTE # 0.1 K/uL (0.0-0.3); IMMATURE GRANULOCYTE % 0.6 %; LYMPHOCYTE # 1.3 K/uL (0.8-4.0); LYMPHOCYTE % 7.6 %; MCH 31.4 pg (27.0-34.0); MCHC 33.7 gm/dL (32.0-36.5); MCV 93.2 fl (83.0-98.0); MONOCYTE # 1.4 K/uL (0.0-1.0); MPV 12.6 fl (9.4-12.4); NEUTROPHIL # (ANC) 13.7 K/uL (1.8-7.8); NEUTROPHIL % 81.3 %; NRBC % 0 /100WBC (0-0.00); PLATELET COUNT 178 K/uL (150-450); RBC 3.82 M/uL (3.50-5.50); RDW-CV 13.3 % (11.9-14.6)
[2016-12-09 04:44] LABS: INR - (THERAPEUTIC) 1.04 (0.92-1.07); PROTIME 10.9 SECONDS (9.8-11.4); WBC 16.9 K/uL (4.0-11.0)
--- NOTE | 2016-12-09 05:32 | NUR ---
patient continue to be unarousable despite sedation is off,with extend both arms to stimuli,will withdraw on both legs to partial nailbed pressure,does not follow simple commands,clear upper lungs sound diminished on the bases,thick creamy secrtions when suctioned,a/c vent mode fio2=30%,p3eed=86%,tolerate t.f at 50ml/h,no bowel movement. FOLLOW UP:continue to monitor patient's hemodynamic and neuro status closely.
[2016-12-09 16:26] LABS: BLOOD UREA NITROGEN 18 mg/dL (6-24); CALCIUM 8.2 mg/dL (8.5-10.5); CO2 22 mMol/L (22-32); CREATININE 0.7 mg/dL (0.5-1.1); ESTIMATED GFR (MDRD EQUATION) > 60; POTASSIUM 3.9 mMol/L (3.7-5.1)
[2016-12-09 16:30] LABS: ANION GAP 11.9 (10.0-19.0); CHLORIDE 118 mMol/L (96-110); SODIUM 148 mMol/L (135-145)
--- NOTE | 2016-12-09 17:44 | NUR ---
Significant Event: Patient remains intubated without sedation. Does not follow commands. Extends in bilateral UE and withdraws in BLE to painful stimuli. No gag or corneal reflex. Weak occassional spontaneous cough. Opened eyes spontaneously late in shift, does not respond to threat or track. SR with HR 60-90. CPP 80-90. SBP 110-150, artline positional at times. Gave PRN hydralazine x3 and prn labetalolx2. Cardene gtt remains off. Lungs asculated clear/diminshed throughtout. Tolerated CPAP trial today. RR12-25, overbreathes set vent rate. SPO2>98%. Hypoactive bowel sounds, no BM. Started MOM today.Remains on osmolite 1.5 via OGT at 50ml/h, no residuals. Max templ 99.9, responds to fan on and will decrease temp to 97-98. ICP/ventric remains intact. Had a total of 112 CSF, clear-pink tinged. ICP 6-10. Follow up:continue. Son to come from [place] by the weekend.
[2016-12-10 04:11] LABS: BICARBONATE 25.9 mmol/L (18.0-23.0); PO2 118 mmHg (80-90)
[2016-12-10 04:12] LABS: PCO2 39 mmHg (35-45)
[2016-12-10 04:31] LABS: ALBUMIN 1.6 gm/dL (3.5-5.0); ALK PHOS 76 IU/L (33-138); ALT 18 IU/L (12-78); ANION GAP 10.9 (10.0-19.0); AST 13 IU/L (10-40); BLOOD UREA NITROGEN 20 mg/dL (6-24); CALCIUM 8.1 mg/dL (8.5-10.5); CHLORIDE 117 mMol/L (96-110); CO2 24 mMol/L (22-32); CREATININE 0.6 mg/dL (0.5-1.1); ESTIMATED GFR (MDRD EQUATION) > 60; POTASSIUM 3.9 mMol/L (3.7-5.1); SODIUM 148 mMol/L (135-145); TOTAL BILIRUBIN 0.2 mg/dL (0.0-1.5); TOTAL PROTEIN 5.1 g/dL (6.0-8.4)
[2016-12-10 04:42] LABS: HEMATOCRIT 36.5 % (33.0-46.0); MCH 31.1 pg (27.0-34.0); MCHC 32.9 gm/dL (32.0-36.5); MCV 94.6 fl (83.0-98.0); MPV 13.3 fl (9.4-12.4); PLATELET COUNT 188 K/uL (150-450); RBC 3.86 M/uL (3.50-5.50); RDW-CV 13.5 % (11.9-14.6); WBC 14.2 K/uL (4.0-11.0)
[2016-12-10 05:26] LABS: ABSOLUTE NEUTROPHIL CT (ANC) 11.6 K/uL (1.8-7.8); BANDED NEUTROPHIL # 0.1 K/uL (0.0-0.1); BANDED NEUTROPHILS % 1 %; LYMPHOCYTE # 1.1 K/uL (0.8-4.0); LYMPHOCYTE % 8 %; SEGMENTED NEUTROPHIL # 11.5 K/uL (1.8-7.8); SEGMENTED NEUTROPHIL % 81 %
--- NOTE | 2016-12-10 05:51 | NUR ---
SIGNIFICANT EVENT: pt remains unresponsive, extends upper extremeties to stimuli, w/d lowers. eyes open at times but no tracking. Doll reflex negative. BP syst. 130-160s. Lebetalol given x6. Vasotec given x1. Hydralazine given x1. ventric output--106cc. clear to pink tinge. Follow up: Family visiting today, unaware of situation
--- NOTE | 2016-12-10 07:53 | NUR ---
A - ON VENT, NO SEDATION. NA+ 148, GLU 106, BUN/END FINDER TWISTING DEPARTMENT 20/0.6, ALB 1.6, WBC 1402. ICP/VENTRIC IN PLACE. PT W/ 2-3+ BLE EDEMA. TF OSMOLITE 1.5 AT 50 ML/HR CONTS W/O DIFFICULTY PROVIDING 1800 KCALS, 75 GM PROTEIN, 914 ML FREE H20. D - INADEQUATE ORAL INTAKE R/T RELIANCE ON VENT AEB EN. I - GOAL: CONT TO MEET 100% OF PT NEEDS VIA EN. M/E - TF STABLE. F/U IN 2-4 DAYS.
--- NOTE | 2016-12-10 11:30 | NUR ---
Talked to nurses this a.m. and they report patient does have children and her oldest son is on his way to [place] with her boyfriend. They think it will be later today when he arrives. Will follow.
[2016-12-10 16:29] LABS: ANION GAP 10.9 (10.0-19.0); BLOOD UREA NITROGEN 21 mg/dL (6-24); CHLORIDE 116 mMol/L (96-110); CO2 25 mMol/L (22-32); CREATININE 0.6 mg/dL (0.5-1.1); ESTIMATED GFR (MDRD EQUATION) > 60; POTASSIUM 3.9 mMol/L (3.7-5.1); SODIUM 148 mMol/L (135-145)
--- NOTE | 2016-12-10 17:25 | NUR ---
Significant Event: Patient remains intubated without sedation. Continue to not follow commands, extend in BUE, Withdraw in BLE, no gag, no corneal reflex. SR with HR 60-90. SBP 130-160. Gave PRN hydralazine x2 an dprn labetalol x1. Did not tolerate 1700 turn very well sbp 200's and dropped sats, also gave prn fentanyl [id number]. Took over 30minutes for patient to settle down. [place] tinged CSF noted after this event, otherwise had been clear.Continue to keep ventric open, drained 104 CSF on this shift. ICP 4-12. CPP 70-90. Lungs ascultated slighlty coarse-clear/diminished. Hypoactive bowel sounds. NO BM. Osmolite 1.5 at 50ml/h continues via OGT, no residual. Afebrile. To keep total fluids at 120ml/h. Continue to monitor accuchecks at 04,10,16,22 Follow up:Continue. Son is supposed to arrive in [place] Thursday.
[2016-12-11 04:52] LABS: ALK PHOS 88 IU/L (33-138); ALT 25 IU/L (12-78); AST 17 IU/L (10-40); BLOOD UREA NITROGEN 22 mg/dL (6-24); CALCIUM 8.2 mg/dL (8.5-10.5); CHLORIDE 115 mMol/L (96-110); CO2 25 mMol/L (22-32); CREATININE 0.5 mg/dL (0.5-1.1); ESTIMATED GFR (MDRD EQUATION) > 60; POTASSIUM 3.6 mMol/L (3.7-5.1); TOTAL BILIRUBIN 0.2 mg/dL (0.0-1.5); TOTAL PROTEIN 5.2 g/dL (6.0-8.4)
[2016-12-11 04:53] LABS: ALBUMIN 1.5 gm/dL (3.5-5.0); ANION GAP 9.6 (10.0-19.0); SODIUM 146 mMol/L (135-145)
[2016-12-11 04:56] LABS: BASOPHIL # 0.1 K/uL (0.0-0.2); BASOPHIL % 0.5 %; EOSINOPHIL # 0.2 K/uL (0.0-0.5); EOSINOPHIL % 1.2 %; HEMATOCRIT 35.7 % (33.0-46.0); IMMATURE GRANULOCYTE # 0.1 K/uL (0.0-0.3); IMMATURE GRANULOCYTE % 0.4 %; LYMPHOCYTE # 0.9 K/uL (0.8-4.0); LYMPHOCYTE % 5.6 %; MCH 31.6 pg (27.0-34.0); MCHC 33.6 gm/dL (32.0-36.5); MCV 93.9 fl (83.0-98.0); MONOCYTE # 1.3 K/uL (0.0-1.0); MONOCYTE % 7.9 %; MPV 13.7 fl (9.4-12.4); NEUTROPHIL # (ANC) 13.6 K/uL (1.8-7.8); NEUTROPHIL % 84.4 %; NRBC % 0 /100WBC (0-0.00); PLATELET COUNT 169 K/uL (150-450); RDW-CV 13.2 % (11.9-14.6)
[2016-12-11 04:57] LABS: WBC 16.2 K/uL (4.0-11.0)
--- NOTE | 2016-12-11 05:03 | NUR ---
No changes made to vent settings this. FiO2 currently at 40% for O2 sats of 93-98%. ETCO2 was 30-35 throughout this shift. Breathsounds clear and diminished throughout bilaterally, but was occasionally slightly coarse throughout. Suctioning small to moderate amounts of thick creamy secretions. Will continue to monitor patient.
--- NOTE | 2016-12-11 07:00 | NUR ---
Significant Event: Does not open eyes when responding to painful stimuli. Pupils 2mm brisk, absent corneal reflex. Gag reflex intact, spontaneous cough. Flexion withdrawal present in upper extremities in response to painful stimuli. Flexion abduction present in lower extremities. Island barrier dressing C/D/I to R) fronto-parietal lobe, to keep ICP < 25, at 10cm H20, CSF light-pink tinged. SBP 130-190's, gave Hydralazine x 4, relief noted. HR 70-90's, SR. 1+ generalized edema. Lung sounds, slightly coarse throughout on A/C vent mode, rate 14 overbreathes set vent rate, PEEP 5, TV 400, on 40% FiO2. B.S. active, on Milk of Mag. Osmolite via OG at 50cc/hr. Nuñez catheter intact, adequate urine output this shift. R) IJ quad lumen infusing NaCl with 20KCl at 46mL/hr. L) hand PIV, L) wrist PIV both SL'd. Total fluids 120cc/hr Follow up: Hourly neuro checks, Code word "Yuli". Keep ICP <25.
--- NOTE | 2016-12-11 13:30 | NUR ---
Told son probably won't be here until Thursday. Have been in contact with Danna with [employer], but at this time patient not able to apply for medicaid. Will follow.
[2016-12-11 16:29] LABS: ANION GAP 13.3 (10.0-19.0); BLOOD UREA NITROGEN 24 mg/dL (6-24); CALCIUM 8.2 mg/dL (8.5-10.5); CHLORIDE 115 mMol/L (96-110); CO2 23 mMol/L (22-32); CREATININE 0.6 mg/dL (0.5-1.1); ESTIMATED GFR (MDRD EQUATION) > 60; POTASSIUM 4.3 mMol/L (3.7-5.1)
[2016-12-11 16:38] LABS: SODIUM 147 mMol/L (135-145)
--- NOTE | 2016-12-11 17:13 | NUR ---
Significant Event: Patient does not follow commands, does not open eyes to command/voice/spontaneously. Pupils are 2 and brisk. Extends in uppers and and withdraws in lowers. Patient has no gag. Does have spontaneous cough. ICP have been 7-27. Ventric is closed, to open if ICP is greater than 15 for 15ml. Totoal drainage from Ventric was 73ml. SBP have been, 120's-160's, MAP's,80's-90's. HR have been 70's-80's. Gave Hydralazine 10mg IVP X3, Vasotec 1.25mg IVP X1, Labetalol 10mg IVP X1 to keep SBP less than 150. Temperature max of 100.2. Vent is in AC rate of 14, TV of 400, Fio2 of 40%, PEEP of 5. RR have been upper teens-20's. EtCo2 have beenupper 20's-low 30's. Lung sounds have been clear and diminished to coarse. Suctioning thick yellow tinged sputum. Osmolite 1.5 is running at 50ml/h which is goal. No residuals. Nuñez had 1055ml out. Follow up:
[2016-12-12 04:28] LABS: ALK PHOS 107 IU/L (33-138); ALT 33 IU/L (12-78); AST 19 IU/L (10-40); BLOOD UREA NITROGEN 23 mg/dL (6-24); CALCIUM 8.5 mg/dL (8.5-10.5); CO2 23 mMol/L (22-32); CREATININE 0.6 mg/dL (0.5-1.1); ESTIMATED GFR (MDRD EQUATION) > 60; POTASSIUM 3.6 mMol/L (3.7-5.1); TOTAL BILIRUBIN 0.2 mg/dL (0.0-1.5); TOTAL PROTEIN 5.2 g/dL (6.0-8.4)
[2016-12-12 04:29] LABS: ALBUMIN 1.3 gm/dL (3.5-5.0); ANION GAP 11.6 (10.0-19.0); CHLORIDE 116 mMol/L (96-110); SODIUM 147 mMol/L (135-145)
[2016-12-12 04:31] LABS: HEMATOCRIT 35.9 % (33.0-46.0); HEMOGLOBIN 11.7 g/dL (10.0-15.0); MCH 30.5 pg (27.0-34.0); MCHC 32.6 gm/dL (32.0-36.5); MCV 93.5 fl (83.0-98.0); MPV 13.2 fl (9.4-12.4); PLATELET COUNT 183 K/uL (150-450); RBC 3.84 M/uL (3.50-5.50); WBC 15.3 K/uL (4.0-11.0)
--- NOTE | 2016-12-12 04:38 | NUR ---
No changes made to vent settings this shift. FiO2 currently at 40% for O2 sats of 93-98%. ETCO2 was 26-31 throughout the shift. Breathsounds clear and diminished throughout bilaterally and occasionally slightly coarse. Suctioning small to moderate amounts of thick creamy secretions. Will continue to monitor patient.
[2016-12-12 04:56] LABS: ABSOLUTE NEUTROPHIL CT (ANC) 12.9 K/uL (1.8-7.8); BANDED NEUTROPHIL # 0.5 K/uL (0.0-0.1); BANDED NEUTROPHILS % 3 %; LYMPHOCYTE # 1.5 K/uL (0.8-4.0); LYMPHOCYTE % 10 %; MONOCYTE # 0.5 K/uL (0.0-1.0); SEGMENTED NEUTROPHIL # 12.4 K/uL (1.8-7.8); SEGMENTED NEUTROPHIL % 81 %
--- NOTE | 2016-12-12 06:16 | NUR ---
Significant Event: PATIENT DOES NOT FOLLOW COMMANDS, W/D X4, OCCASIONALLY MOVES ALL 4 EXTREMITIES SPONTANEOUSLY. VENTRIC IS TO REMAIN CLOSED UNTIL ICP>15, THEN OPEN UNTIL 15ML CSF DRAINED OUT. ICPS 3-12, TIMES OPEN ICPS 15-20S. 165ML OF PINK TINGED CSF OUT. PUPILS ARE 2 REACTIVE EQUAL. PATIENT OVERBREATHES VENT AT TIMES. OPEN VENTRIC X5. LUNG SOUNDS SLIGHTLY COURSE TO WHEEZY AT TIMES, SPONTANEOUS/ INDUCED COUGH. PATIENT HYPERTENSIVE PRN HYDRALAZINE GIVEN X6, LABETOLOL X1. 2+ GENERALIZED EDEMA. TF AT 50ML/HR, WHICH IS GOAL, NO RESIDUALS, NO BM, HYPO BOWEL SOUNDS. ZAMUDIO HAD 1790ML CLEAR YELLOW OUT. PRN FENTANYL GIVEN X1. OFF FLOOR FOR CT OF HEAD. ACCU CHECKS 10,16, 22, 04. Follow up: CONTINUE TO MONITOR.
--- NOTE | 2016-12-12 10:41 | NUR ---
A-NUTRITION F/U ON THE VENT; NO SEDATION. ICP/VENTRIC; OPENED 6 TIMES LAST NIGHT. 2+ GENERALIZED EDEMA. HYPOACTIVE BS; NO RESIDUALS FROM TF. LABS: NA 147, K+ 3.6, GLU 153, BUN 23, UNEMPLOYMENT INSURANCE HEARING OFFICER 0.6, ALB 1.3. MEDS: LOPRESSOR, ZESTRIL DIET RX: NPO; 50 ML/HR OSMOLITE 1.5 (PROVIDING 1800 KCALS, 75 GM PROTEIN, AND 914 ML FREE WATER). PT APPEARS TO BE TOLERATING TF WITHOUT DIFFICULTY. EST NUTR NEEDS: 3573-3188 KCALS AND 66-86 GM PROTEIN D-AT NUTRITION RISK W/INADEQUATE ORAL INTAKE R/T VENT SUPPORT AEB NEED FOR ENTERAL NUTRITION. I-CONTINUE W/CURRENT TF RX M/E-GOALS: 1)CONTINUED TOLERANCE OF TF AND 2) TF TO MEET NUTR. NEEDS 1)F/U TF AND POC IN 3-5 DAYS 2)ASSIST NEEDED
--- NOTE | 2016-12-12 12:45 | NUR ---
Talked to patient's nurse and she says son now says he will be here tomorrow. Will follow.
--- NOTE | 2016-12-12 17:12 | NUR ---
PT VENTED ON 40% SATS 96-100%, BREATH SOUNDS SLIGHTLY COARSE THROUGHOUT BUT CLEARS SOME WITH SXN, SXN A MODERATE AMOUNT OF CREAMY SPUTUM, ETCO2 30-36 MOST OF THE DAY, WILL CONTINUE TO WEAN PT TOLERATES
--- NOTE | 2016-12-12 17:21 | NUR ---
Significant Events: Patient continues to extend in BUE, withdraw to BLE. Overbreathes vent set rate, no gag, spont & induced cough. Pupils equal and reactive. Ventric open continuously with 101 mL pink tinged CSF. SR, PRN Labetalol given x4 to keep SBP <150. LS slightly coarse, thick helms secretions suctioned from ETT. Dr Alexandra to cover for Dr Clark over the weekend and Dr Henderson covering for Dr Gil until December 25. Follow up: Family is supposed to come tomorrow
[2016-12-13 04:45] LABS: ALK PHOS 125 IU/L (33-138); ALT 39 IU/L (12-78); AST 22 IU/L (10-40); BLOOD UREA NITROGEN 22 mg/dL (6-24); CALCIUM 8.5 mg/dL (8.5-10.5); CHLORIDE 115 mMol/L (96-110); CO2 24 mMol/L (22-32); CREATININE 0.6 mg/dL (0.5-1.1); ESTIMATED GFR (MDRD EQUATION) > 60; POTASSIUM 3.8 mMol/L (3.7-5.1); TOTAL BILIRUBIN 0.2 mg/dL (0.0-1.5); TOTAL PROTEIN 5.2 g/dL (6.0-8.4)
[2016-12-13 04:55] LABS: ALBUMIN 1.2 gm/dL (3.5-5.0); ANION GAP 11.8 (10.0-19.0); SODIUM 147 mMol/L (135-145)
[2016-12-13 04:56] LABS: BASOPHIL # 0.1 K/uL (0.0-0.2); BASOPHIL % 0.7 %; EOSINOPHIL # 0.4 K/uL (0.0-0.5); EOSINOPHIL % 3.2 %; HEMATOCRIT 34.3 % (33.0-46.0); HEMOGLOBIN 11.4 g/dL (10.0-15.0); IMMATURE GRANULOCYTE # 0.1 K/uL (0.0-0.3); IMMATURE GRANULOCYTE % 0.7 %; LYMPHOCYTE # 1.2 K/uL (0.8-4.0); LYMPHOCYTE % 9.9 %; MCH 31.1 pg (27.0-34.0); MCHC 33.2 gm/dL (32.0-36.5); MCV 93.7 fl (83.0-98.0); MONOCYTE # 1.5 K/uL (0.0-1.0); MONOCYTE % 12.2 %; MPV 13.7 fl (9.4-12.4); NEUTROPHIL # (ANC) 8.9 K/uL (1.8-7.8); NEUTROPHIL % 73.3 %; NRBC % 0 /100WBC (0-0.00); PLATELET COUNT 188 K/uL (150-450); RBC 3.66 M/uL (3.50-5.50); RDW-CV 12.6 % (11.9-14.6); WBC 12.2 K/uL (4.0-11.0)
--- NOTE | 2016-12-13 04:58 | NUR ---
Significant Event: Does not follow commands. Does not open eyes. Pupils 2mm and brisk. Withdraws to pain in lower extremities. Extends to pain in upper extremities. Overbreathes vent, cough intact. No gag or corneal reflex. Scleral edema present. Ventric open at all times. Drained 102 ml blood tinged CSF. ICPs 4-12. Temp max 100.6. Labetalol 10 mg given x3 and hydralazine 10 mg given x2. A/C 40%. ETC02 high 20s to low 30s. RR low 20s. Lungs slightly coarse throughout. Tube feed running at goal of 50 ml/hr with no residuals. Hypo to active bowel sounds. No BM. Passes gas. Nuñez drained 1620 ml of clear light yellow urine. Tongue is swollen and has laceration on R) side. Bath done. Fentanyl 50 mcg given x2. Follow up: Family to arrive today
--- NOTE | 2016-12-13 05:17 | NUR ---
Patient currently on the ventilator. FiO2 currently at 40% for O2 sats of 96-98%. ETCO2 was 27-35 throughout the shift. Breathsounds slightly coarse throughout bilaterally. Suctioning small to moderate amounts of thick creamy secretions. Will continue to monitor patient.
--- NOTE | 2016-12-13 16:49 | NUR ---
PT UNRESPONSIVE. HYPEREFLEXIA TO BLE, DECERBRATE TO BUE, NO CORNEAL REFLEX, PUPILS EQUAL AND REACTIVE, SPONT COUGH NO GAG PRESENT. CPAP FOR MOST OF DAY RR TEEN'S, ETCO2 UPPER 20'S, LS SLC AND OCC INS WHEEZE TO TAINA AND DIM TO R) SIDE T/O. SBP 130-150'S, CPP 70-90'S, T-MAX 100.6. ICP'S 0-<10 WITH VENTRIC DRNG BLD-TINGED HAVING 100MLS O/P. NO BM, TF WITHOUT AND RESIDUALS AT GOAL. FLATUS PRESENT, BS NORMOACTIVE, ZAMUDIO WITH ADEQ CLEAR YELLOW UOP. PT WAS +152 FOR SHIFT, NO AREAS OF SKIN BREAKDOWN WITH DRSG C/D/I. FAMILY ARRIVED TODAY, WILL PLAN TO MEET WITH MD'S TOMORROW. IVF CHANGED TO TKO, WITH H20 FLUSHES ADDED ALONG WITH KCL PER OGT.
--- NOTE | 2016-12-13 17:06 | NUR ---
PT VENTED ON 40% SATS 96-100%, BREATH SOUNDS SLIGHTLY COARE THROUGHOUT, SXN A MODERATE AMOUNT OF CREAMY SPUTUM, ETCO2 28-32 MOST OF THE DAY, PT PLACED IN CPAP 10/30 WHICH SEEMED TO HELP SYNCHRONIZE HER BREATHING WITH THE VENT BETTER, WILL CONTINUE TO MONITOR UNTIL FURTHER NOTICE
--- NOTE | 2016-12-14 05:19 | NUR ---
Pt in CPAP/PS 10/30 most of shift tolerating well until around 0230 she began to have a few apnea episodes. At this times, placed back in AC and continues at FiO2 of 40%. BrSs slightly coarse in bases of lungs, suctioning moderate amounts of yellow, thick secretions from ETT. EtCO2 25-27. ICP issues and hypertension this AM. Continue per plan of care.
--- NOTE | 2016-12-14 06:39 | NUR ---
Significant Event: Patient unresponsive. Decerbrate to bilateral upper extremities. Pupils equal and reactive, no corneal reflex. No gag present. CPAP until 0400. ICPs 0-10 until 0520. RT suctioned patient and pressures 2-teens/100s, ICPs 60s. ICPs maintained 40s then slowly decreased. Physician notified and orders for versed received. Versed given. ICPs down to teens-20s. Ventric with pink tinged drainage. 99 ml out of ventric. Tube feed continues at 50 ml/hour. No residules noted. Follow up: continue
[2016-12-14 06:41] LABS: BASOPHIL # 0.1 K/uL (0.0-0.2); BASOPHIL % 0.8 %; EOSINOPHIL # 0.3 K/uL (0.0-0.5); EOSINOPHIL % 2.5 %; HEMATOCRIT 34.6 % (33.0-46.0); HEMOGLOBIN 11.7 g/dL (10.0-15.0); IMMATURE GRANULOCYTE # 0.2 K/uL (0.0-0.3); IMMATURE GRANULOCYTE % 1.6 %; LYMPHOCYTE # 1.3 K/uL (0.8-4.0); LYMPHOCYTE % 9.7 %; MCHC 33.8 gm/dL (32.0-36.5); MCV 91.8 fl (83.0-98.0); MONOCYTE # 1.8 K/uL (0.0-1.0); MONOCYTE % 13.6 %; MPV 13.3 fl (9.4-12.4); NEUTROPHIL # (ANC) 9.3 K/uL (1.8-7.8); NEUTROPHIL % 71.8 %; NRBC % 0 /100WBC (0-0.00); PLATELET COUNT 219 K/uL (150-450); RBC 3.77 M/uL (3.50-5.50); RDW-CV 12.5 % (11.9-14.6)
[2016-12-14 08:08] LABS: ALK PHOS 162 IU/L (33-138); ALT 51 IU/L (12-78); ANION GAP 13.5 (10.0-19.0); AST 30 IU/L (10-40); BLOOD UREA NITROGEN 24 mg/dL (6-24); CALCIUM 8.3 mg/dL (8.5-10.5); CHLORIDE 108 mMol/L (96-110); CO2 23 mMol/L (22-32); CREATININE 0.7 mg/dL (0.5-1.1); ESTIMATED GFR (MDRD EQUATION) > 60; POTASSIUM 3.5 mMol/L (3.7-5.1); SODIUM 141 mMol/L (135-145); TOTAL BILIRUBIN 0.2 mg/dL (0.0-1.5); TOTAL PROTEIN 5.4 g/dL (6.0-8.4)
[2016-12-14 08:09] LABS: ALBUMIN 1.2 gm/dL (3.5-5.0)
[2016-12-14 10:20] LABS: ABSOLUTE NEUTROPHIL CT (ANC) 8.3 K/uL (1.8-7.8); BANDED NEUTROPHIL # 0.3 K/uL (0.0-0.1); BANDED NEUTROPHILS % 2 %; LYMPHOCYTE # 2.5 K/uL (0.8-4.0); LYMPHOCYTE % 19 %; MONOCYTE # 1.8 K/uL (0.0-1.0); SEGMENTED NEUTROPHIL # 8.1 K/uL (1.8-7.8); SEGMENTED NEUTROPHIL % 62 %
--- NOTE | 2016-12-14 17:15 | NUR ---
PT REMAINS NEUROLOGICALLY THE SAME, PERRL INTACT, NO CORNEAL REFLEX, CPAP DURING THE DAY TOLERATED WELL. NEEDS SUCTIONED Q2H D/T INCREASED THICK VERONICA SECRETIONS. BAL SHOWING GRAM + COCCI, PT T-MAX 99.0 PER ESOPHAGEAL PROBE, NO PRN MEDS GIVEN. HOLDING ON ABX COVERAGE UNLESS FEBRILE AND CHANGE IN SECRETIONS. SATS LOW 90'S, ETCO2 HIGH 20'S, RR TEEN-20'S. LS SLC AND DIM TO BILAT BASES. VERSED TO BE GIVEN WITH BIG TURNS AND DEEP SUCTIONING, ICP HIGH OF 32 THIS AM AND SLOW TO RECOVER, VERSED GIVEN X3 OF MG X2 AND 1MG X1. 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 TALK WITH FAMILY BY NEUROSURGEON AND MDA, PLAN ON MAKING DECISIONS WITHIN NEXT COUPLE OF DAYS FOR POC. IVF TKO, VENTRIC WITH 77 MLS O/P, PT +[phone] FOR SHIFT. DULCOLAX GIVEN WITH RESPONSE OF TWO MODERATE BM'S FORMED AND LOOSE/LIQUID. ZAMUDIO WITH ADEQ UOP, TF INCREASED TO 60MLS/HR WITH NO RESIDUALS.
--- NOTE | 2016-12-14 17:26 | NUR ---
PT VENTED ON 40% SATS 92-95%, BREATH SOUNDS SLIGHTLY COARSE THROUGHOUT, SXN WAS AT MINIMAL BECAUSE ICP'S ARE AFFECTED GREATLY WHEN PT COUGHS,ETCO2 22-26 MOST OF THE DAY, WILL CONTINUE TO MONITOR UNTIL FURTHER NOTICE
--- NOTE | 2016-12-15 04:58 | NUR ---
No vent changes made this shift, continues in CPAP/PS 10/30 FiO2 40%. BrSs coarse t/o, suctioned small-moderate amounts of thick, yellow secretions from ETT. EtCO2 24-32. Transport to CT without any complications. Continue per plan of care.
[2016-12-15 05:12] LABS: ALBUMIN 1.2 gm/dL (3.5-5.0); ALK PHOS 213 IU/L (33-138); ALT 87 IU/L (12-78); AST 60 IU/L (10-40); BLOOD UREA NITROGEN 24 mg/dL (6-24); CALCIUM 8.5 mg/dL (8.5-10.5); CHLORIDE 107 mMol/L (96-110); CO2 24 mMol/L (22-32); CREATININE 0.8 mg/dL (0.5-1.1); ESTIMATED GFR (MDRD EQUATION) > 60; SODIUM 139 mMol/L (135-145); TOTAL BILIRUBIN 0.3 mg/dL (0.0-1.5); TOTAL PROTEIN 5.7 g/dL (6.0-8.4)
[2016-12-15 05:14] LABS: BASOPHIL # 0.1 K/uL (0.0-0.2); BASOPHIL % 0.8 %; EOSINOPHIL # 0.4 K/uL (0.0-0.5); EOSINOPHIL % 2.5 %; HEMATOCRIT 35.7 % (33.0-46.0); HEMOGLOBIN 11.9 g/dL (10.0-15.0); IMMATURE GRANULOCYTE # 0.4 K/uL (0.0-0.3); LYMPHOCYTE # 1.9 K/uL (0.8-4.0); LYMPHOCYTE % 13.4 %; MCH 30.4 pg (27.0-34.0); MCHC 33.3 gm/dL (32.0-36.5); MCV 91.1 fl (83.0-98.0); MONOCYTE # 1.9 K/uL (0.0-1.0); MPV 13.6 fl (9.4-12.4); NEUTROPHIL # (ANC) 9.8 K/uL (1.8-7.8); NEUTROPHIL % 67.3 %; NRBC % 0 /100WBC (0-0.00); PLATELET COUNT 250 K/uL (150-450); RBC 3.92 M/uL (3.50-5.50); RDW-CV 12.4 % (11.9-14.6); WBC 14.5 K/uL (4.0-11.0)
--- NOTE | 2016-12-15 05:27 | NUR ---
SIGNIFICANT EVENT: PT SHOWS DECREBRATE POSTURING IN UPPER EXTREMETIES, WITHDRAWS LOWERS. CLONUS IN FEET. PUPILS 2 BRISK. BP 140-150S, WILL SPIKE WITH INCREASED STIMULATION. ICP 3-8. CPP 75-85. DOLLS EYES. LUNGS CLEAR WITH SOME SLIGHT WHEEZING. NO GAG. 128 OUT OF VENTRICULOSTOMY. URINE OUTPUT ADEQUATE. LABETALOL/HYDRALAZINE GIVEN FOR SBP GREATER THAN 150, VERSED GIVEN BEFORE SUCTIONING. PT ON VENT. OVERBREATHES, COUGHS, ON CPAP PS-11, PEEP-5, 40%. OSMOLITE 1.5 RUNNING AT 60ML PER HOUR. TONGUE IS SWOLLEN, MOUTH NEEDS SUCTIONING FREQUENTLY. FOLLOW UP: CT SCAN RESULTS
--- NOTE | 2016-12-15 10:56 | NUR ---
A-NUTRITION F/U ON THE VENT. ICP/VENTRIC. HYPOACTIVE BS; (+)BM. NO RESIDUALS FAMILY WILL MAKE DECISION RE: POC IN THE NEXT FEW DAYS LABS: NA 139, K+ 4.0, GLU 119, BUN 24, LAMINATION BUILDER 0.8, ALB 1.2, PREALB 11.0 MEDS: VANCOMYCIN, VERSED DIET RX: NPO; TF INCREASED TO 60 ML/HR OSMOLITE 1.5 (THIS IS PROVIDING 2160 KCALS, 90 GM PROTEIN, AND 1097 ML FREE WATER) EST NUTR NEEDS: [id number] KCALS AND 66-86 GM PROTEIN D-AT NUTRITION RISK W/INADEQUATE ORAL INTAKE R/T VENT SUPPORT AEB NEED FOR ENTERAL NUTRITION. I-CONITNUE W/CURRENT TF RX M/E-GOAL: PT WILL CONTINUE TO TOLERATE TF 1)F/U TF AND POC IN 2-3 DAYS 2)ASSIST NEEDED
--- NOTE | 2016-12-15 14:40 | NUR ---
Received call from pt nurse that Dr Alexandra wants behavioral health care manager to talk with family about what it will take to get patient back to [place]. Introduced self and care management services to patient ex , son and his girlfriend at bedside. Pt is and currently from her , they indicate current spouse has deferred decisions to pt son. Asked what physician has talked with them about. They report that the next thing is to get pt trach and peg and then back to [place]. Explained that the first thing they will need to do is one of them contact a radiographer to get guardianship in place so they can establish who will make decisions for patient, medical and legal, does not have to be spouse if he does not want to, can be son or sibling or friend. 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 Then need to start application for [place] Medicaid, gave them Danna with [employer] card and let them know this is who they can work with here to help guardian apply for patient. Discussed these are first two barriers that need to be addressed. After that, will depend on what her medical needs are and what facility we can find to accept her. Most of the time after getting a trach and peg placed, while pt still on ventillator, they would go to an LTAC or vent weaning unit if [place] Medicaid doesn't recognize LTAC level of care. 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 Also let them know that Medicaid will not pay for transport back to [place], so they will have to raise $15,000 to $20,000 (estimate) for medical flight back to facility in [place]. They ask about patient going back to hospital in [place] now. Told them that the hospital in [place] would have to be willing to accept and they would have to have an accepting physician there in order for that to happen, along with the cost of the medical flight. Ask if patient could go by ambulance. Told them it will depend on how far away the receiving facility is and what pt medical needs are, in next several weeks no, would be too far and medical needs too great. If gets off the ventilator eventually and condition very stable and depending on how far away facility is, then possibly, we would have to check on it, but again, Medicaid will not pay for ambulance transport to [place], ground or flight. Again, discussed that their first step is in establishing a guardian for patient, need to contact a radiographer for that and best option is to contact radiographer in [place] and they will be more familiar with [place] laws about guardianship and process. Then next step applying for [place] Medicaid and [employer] here can help them with that. Gave them Danna with [employer] card. Encouraged them to think about what information physician has given them about pt condition and talk as a family about what patient would want and what they next want to do and then let us know what they are deciding, who will be guardian and that information. They voice understanding and thank me for the information. I let patient nurse and charge nurse know. Ex gives nurse their contact information, going back to [place].
--- NOTE | 2016-12-15 16:58 | NUR ---
PT VENTED ON 40% SATS 94-98%, BREATH SOUNDS COARSE THROUGOUT BUT CLEAR SOME WITH SXN, SXN A MODERATE TO LARGE AMOUNT OF CREAMY YELLOW SPUTUM, ETCO2 34-38 MOST OF THE DAY, WILL CONTINUE TO MONITOR UNTIL FURTHER NOTICE
--- NOTE | 2016-12-15 18:45 | NUR ---
Significant Events: Patient neuro exam continues to remain the same, only change is occassional tremors to BLE with increased stimuli. 88 ml of pink tinged CSF drained from ventric. Family at bedside for short time, no decisions made at this time. Donna, Care Management spoke with son and ex- about guardianship, applying for Medicaid and future placement. Dr Henderson called mom per her request to update on condition, she has no plans to visit patient. Follow up: Continue
--- NOTE | 2016-12-16 05:54 | NUR ---
No changes to vent settings t/o shift, tolerated CPAP 5/PS 11 t/o shift, on 40% Fio2. Will continue as ordered
[2016-12-16 05:59] LABS: BASOPHIL # 0.1 K/uL (0.0-0.2); BASOPHIL % 0.6 %; EOSINOPHIL # 0.4 K/uL (0.0-0.5); EOSINOPHIL % 2.5 %; HEMATOCRIT 33.8 % (33.0-46.0); HEMOGLOBIN 11.6 g/dL (10.0-15.0); IMMATURE GRANULOCYTE # 0.8 K/uL (0.0-0.3); IMMATURE GRANULOCYTE % 5.1 %; LYMPHOCYTE # 2.1 K/uL (0.8-4.0); LYMPHOCYTE % 12.9 %; MCHC 34.3 gm/dL (32.0-36.5); MCV 90.4 fl (83.0-98.0); MONOCYTE # 1.7 K/uL (0.0-1.0); MONOCYTE % 10.6 %; MPV 12.8 fl (9.4-12.4); NEUTROPHIL % 68.3 %; NRBC % 0 /100WBC (0-0.00); PLATELET COUNT 244 K/uL (150-450); RBC 3.74 M/uL (3.50-5.50); RDW-CV 12.1 % (11.9-14.6)
[2016-12-16 06:29] LABS: ALBUMIN 1.3 gm/dL (3.5-5.0); ALK PHOS 224 IU/L (33-138); ALT 93 IU/L (12-78); ANION GAP 11.2 (10.0-19.0); AST 51 IU/L (10-40); BLOOD UREA NITROGEN 27 mg/dL (6-24); CALCIUM 8.8 mg/dL (8.5-10.5); CHLORIDE 106 mMol/L (96-110); CO2 25 mMol/L (22-32); CREATININE 0.8 mg/dL (0.5-1.1); ESTIMATED GFR (MDRD EQUATION) > 60; POTASSIUM 4.2 mMol/L (3.7-5.1); SODIUM 138 mMol/L (135-145); TOTAL BILIRUBIN 0.2 mg/dL (0.0-1.5); TOTAL PROTEIN 5.7 g/dL (6.0-8.4)
--- NOTE | 2016-12-16 06:39 | NUR ---
Significant Event: PT REMAINS INTUBATED, NO SEDATION. PUPILS 2/B, DECEREBRATE POSTURING IN BUE, W/D IN BLE. OCCASIONAL SPONTANEOUS MOVEMENT NOTED, BUT NOTHING PURPOSEFUL. DOES NOT OPEN EYES, DOES NOT FOLLOW COMMANDS. ICP 1-7 FOR THIS RN. HR 70S-80S, NSR ON MONITOR. TMAX 99.9. REMAINS IN CPAP THIS SHIFT, TOLERATES WELL. CONTINUES TO RECIEVE OSMOLITE 1.5 AT GOAL RATE, Q4H 200 ML H2O FLUSHES, RESIDUALS 0/60/0 FOR THIS RN. UOP APPROPRIATE. Follow up: CONTINUE RUBIO MUNOZ RN
--- NOTE | 2016-12-16 15:45 | NUR ---
Talked with patient's nurse Oksana several times today. Drs have talked with her mom today and updated her. Notified patient's Fabian Mars called nurse this afternoon and stated family has discussed situation and are wanting to withdraw and do comfort cares. Nurse is waiting for to round and thinks will also call Fabian back. Did contact Tiffany [employer] to discuss situation with her. Fabian is her legal next of kin, according to information we have been given. Tiffany says if they are not legally he is the legal next of kin, even if they have not been together since last fall. She says we can contact son Dmitry and let him know Fabian has notified us of their decision and see if he has questions or wants to have the phone put to her ear so he can talk to her before withdrawing. Notified charge nurse, Carlo and patient's nurse, Oksana of call with Tiffany. Will follow.
--- NOTE | 2016-12-16 16:17 | NUR ---
Significant Events: Patient's , Fabian Mars, calls to say that he and the family have decided to withdraw care. Myself and Carlo received verbal decision and then also informed him that Dr Henderson or Amber will be call him to also talk to him about the options. Kevin Raymundo Managment, updated and she also called Risk Management to ok the decision coming from current since previously all decisions were being made by son. ELAINA Bui updated on family decision. Currently doing [facility] DCD CPAP trials.
--- NOTE | 2016-12-16 17:25 | NUR ---
D: STROKE I: VENT, MDI R: PT REMAINED ON 40% FIO2 T/O DAY, BS C&D BILATERALLY, SXNED OUT SMALL THICK CREAMY SECRETIONS, PT REMAINED IN CPAP/PS 10/30 T/O DAY, ELAINA HAD ORDERS FOR ME TO ATTEMPT CPAP/PS 0/0 FOR 20 MINUTES & THEN GET A RSBI, NIF, & CHECK FOR CUFF LEAK, VT' WERE MID 600'S, RR LOW TO MID 20'S, RSBI WAS 32 & NIF WAS -23, PT DID NOT HAVE A COUGH LEAK P: ELAINA IS PROCEEDING WITH CASE & WILL HAVE A TEAM HERE JULIO
[2016-12-16 20:40] LABS: BICARBONATE 25.9 mmol/L (18.0-23.0); PCO2 34 mmHg (35-45); PO2 149 mmHg (80-90)
[2016-12-16 20:43] LABS: HEMATOCRIT 33.7 % (33.0-46.0); HEMOGLOBIN 11.4 g/dL (10.0-15.0); MCH 30.6 pg (27.0-34.0); MCHC 33.8 gm/dL (32.0-36.5); MCV 90.3 fl (83.0-98.0); MPV 13.2 fl (9.4-12.4); PLATELET COUNT 265 K/uL (150-450); RBC 3.73 M/uL (3.50-5.50)
[2016-12-16 20:44] LABS: WBC 17.9 K/uL (4.0-11.0)
[2016-12-16 21:06] LABS: ALK PHOS 238 IU/L (33-138); ALT 115 IU/L (12-78); ANION GAP 12.2 (10.0-19.0); AST 61 IU/L (10-40); BLOOD UREA NITROGEN 28 mg/dL (6-24); CALCIUM 8.9 mg/dL (8.5-10.5); CHLORIDE 110 mMol/L (96-110); CO2 23 mMol/L (22-32); CREATININE 0.9 mg/dL (0.5-1.1); ESTIMATED GFR (MDRD EQUATION) > 60; POTASSIUM 4.2 mMol/L (3.7-5.1); SODIUM 141 mMol/L (135-145); TOTAL BILIRUBIN 0.2 mg/dL (0.0-1.5)
[2016-12-16 21:14] LABS: ABSOLUTE NEUTROPHIL CT (ANC) 13.4 K/uL (1.8-7.8); LYMPHOCYTE # 2.5 K/uL (0.8-4.0); LYMPHOCYTE % 14 %; MONOCYTE # 1.8 K/uL (0.0-1.0); SEGMENTED NEUTROPHIL # 13.4 K/uL (1.8-7.8); SEGMENTED NEUTROPHIL % 75 %
[2016-12-16 21:26] LABS: ALBUMIN 1.3 gm/dL (3.5-5.0)
[2016-12-17 00:05] LABS: BICARBONATE 23.3 mmol/L (18.0-23.0); HEMATOCRIT 31.7 % (33.0-46.0); HEMOGLOBIN 10.8 g/dL (10.0-15.0); MCH 30.9 pg (27.0-34.0); MCHC 34.1 gm/dL (32.0-36.5); MCV 90.6 fl (83.0-98.0); MPV 12.8 fl (9.4-12.4); PCO2 32 mmHg (35-45); PLATELET COUNT 252 K/uL (150-450); RDW-CV 12.2 % (11.9-14.6)
[2016-12-17 00:06] LABS: PO2 368 mmHg (80-90); WBC 18.2 K/uL (4.0-11.0)
[2016-12-17 00:23] LABS: INR - (THERAPEUTIC) 1.2 (0.92-1.07); PROTIME 12.6 SECONDS (9.8-11.4)
[2016-12-17 00:28] LABS: ALBUMIN 1.3 gm/dL (3.5-5.0); ALK PHOS 206 IU/L (33-138); ALT 107 IU/L (12-78); ANION GAP 13.5 (10.0-19.0); AST 52 IU/L (10-40); BLOOD UREA NITROGEN 31 mg/dL (6-24); CALCIUM 8.4 mg/dL (8.5-10.5); CHLORIDE 112 mMol/L (96-110); CO2 22 mMol/L (22-32); ESTIMATED GFR (MDRD EQUATION) 59; MAGNESIUM 2.3 mg/dL (1.8-2.6); PHOSPHORUS 5.6 mg/dL (2.5-4.9); POTASSIUM 4.5 mMol/L (3.7-5.1); SODIUM 143 mMol/L (135-145); TOTAL BILIRUBIN 0.2 mg/dL (0.0-1.5); TOTAL PROTEIN 5.6 g/dL (6.0-8.4)
[2016-12-17 00:36] LABS: BILIRUBIN URINE NEGATIVE (NEGATIVE); BLOOD URINE 150 /UL (NEGATIVE); COLOR URINE YELLOW (YELLOW); GLUCOSE URINE NEGATIVE (NEGATIVE); KETONE URINE NEGATIVE (NEGATIVE); LEUKOCYTES URINE 25 /UL (NEGATIVE); NITRITE URINE NEGATIVE (NEGATIVE); PROTEIN URINE 500 mg/dL (NEGATIVE); TURBIDITY URINE 1+ (CLEAR); UROBILINOGEN URINE NORMAL (NORMAL)
[2016-12-17 00:42] LABS: RBC URINE 20-50 #/HPF (NEGATIVE)
[2016-12-17 00:43] LABS: AMORPHOUS URINE 1+ (NEGATIVE); BACTERIA URINE NEGATIVE (NEGATIVE); MUCUS URINE 1+ (NEGATIVE)
[2016-12-17 00:53] LABS: ABSOLUTE NEUTROPHIL CT (ANC) 13.1 K/uL (1.8-7.8); BANDED NEUTROPHIL # 0.7 K/uL (0.0-0.1); BANDED NEUTROPHILS % 4 %; LYMPHOCYTE # 2.9 K/uL (0.8-4.0); LYMPHOCYTE % 16 %; MONOCYTE # 0.7 K/uL (0.0-1.0); SEGMENTED NEUTROPHIL # 12.4 K/uL (1.8-7.8); SEGMENTED NEUTROPHIL % 68 %
[2016-12-17 04:02] LABS: BICARBONATE 23.6 mmol/L (18.0-23.0); PCO2 34 mmHg (35-45); PO2 374 mmHg (80-90)
--- NOTE | 2016-12-17 04:03 | NUR ---
Bronched Pt at start of shift per NORDesi, BAL sent to lab. Changed to A/C 12, Peep 10. Started [facility] Lung recruitment protocol. CPT with vest in semi parra's. Sxn small white/frothy with spont cough. Will continue as ordered by ELAINA
[2016-12-17 05:29] LABS: HEMATOCRIT 31.2 % (33.0-46.0); HEMOGLOBIN 10.5 g/dL (10.0-15.0); MCH 30.9 pg (27.0-34.0); MCHC 33.7 gm/dL (32.0-36.5); MCV 91.8 fl (83.0-98.0); MPV 13.1 fl (9.4-12.4); PLATELET COUNT 233 K/uL (150-450); RDW-CV 12.3 % (11.9-14.6)
[2016-12-17 05:33] LABS: WBC 17.3 K/uL (4.0-11.0)
[2016-12-17 05:34] LABS: INR - (THERAPEUTIC) 1.19 (0.92-1.07); PROTIME 12.5 SECONDS (9.8-11.4)
[2016-12-17 05:41] LABS: MAGNESIUM 2.5 mg/dL (1.8-2.6); PHOSPHORUS 5.7 mg/dL (2.5-4.9)
[2016-12-17 05:43] LABS: ANION GAP 13.2 (10.0-19.0); CALCIUM 8.1 mg/dL (8.5-10.5); POTASSIUM 4.2 mMol/L (3.7-5.1); TOTAL PROTEIN 5.6 g/dL (6.0-8.4)
[2016-12-17 05:46] LABS: ALBUMIN 1.4 gm/dL (3.5-5.0); TOTAL BILIRUBIN 0.4 mg/dL (0.0-1.5)
[2016-12-17 05:46] LABS: BILIRUBIN URINE NEGATIVE (NEGATIVE); BLOOD URINE 50 /UL (NEGATIVE); COLOR URINE YELLOW (YELLOW); GLUCOSE URINE NEGATIVE (NEGATIVE); KETONE URINE NEGATIVE (NEGATIVE); LEUKOCYTES URINE NEGATIVE /UL (NEGATIVE); NITRITE URINE NEGATIVE (NEGATIVE); PROTEIN URINE 100 mg/dL (NEGATIVE); TURBIDITY URINE 1+ (CLEAR); UROBILINOGEN URINE NORMAL (NORMAL)
--- NOTE | 2016-12-17 05:54 | NUR ---
Significant Event: PT NORS DCD CANDIDATE. BRONCHOSCOPY, CVL PLACEMENT, ARTERIAL LINE PLACEMENT, ECHOCARDIOGARM, EKG ALL PERFORMED THIS SHIFT. LUNG RECRUITMENT Q4H WITH CXR AND O2 CHALLENGE PERFORMED. NORS COORDINATOR UPDATED WITH CHANGES AND RECOMMENDATIONS COMMUNICATED WITH HOSPITALIST GROUP WHICH WAS CONSULTED FOR DCD COORDINATOR RECOMMENDATION MANAGEMENT. LABS AND VS STABLE THIS SHIFT. NEURO EXAM REMAINS UNCHANGED. SR ON MONITOR, 70S-80S WHEN NOT AGITATED. BP SLIGHTLY HYPOTENSIVE CLOSE TO END OF SHIFT, ALBUMIN AND LASIX GIVEN FOR LOW UOP. PLACED BACK ON A/C MODE, PROPOFOL CONTINUED DUE TO VENT DESYNCHRONY. TF/FLUSHED STOPPED PER RECOMMENDATION. NO BM THIS SHIFT. UOP INCREASING AFTER ALBUMIN/LASIX GIVEN. NS INCREASED TO 100 ML/HR THIS SHIFT. Follow up: CONTINUE WITH NORS/DCD COORDINATOR/RECOMMENDATIONS RUBIO MUNOZ RN
[2016-12-17 05:56] LABS: AMORPHOUS URINE 1+ (NEGATIVE); BACTERIA URINE NEGATIVE (NEGATIVE); MUCUS URINE 1+ (NEGATIVE)
[2016-12-17 06:00] LABS: ABSOLUTE NEUTROPHIL CT (ANC) 13.3 K/uL (1.8-7.8); BANDED NEUTROPHIL # 1.7 K/uL (0.0-0.1); BANDED NEUTROPHILS % 10 %; LYMPHOCYTE # 1.7 K/uL (0.8-4.0); LYMPHOCYTE % 10 %; MONOCYTE # 0.5 K/uL (0.0-1.0); SEGMENTED NEUTROPHIL # 11.6 K/uL (1.8-7.8); SEGMENTED NEUTROPHIL % 67 %
[2016-12-17 07:47] LABS: BICARBONATE 21.8 mmol/L (18.0-23.0); PCO2 30 mmHg (35-45); PO2 405 mmHg (80-90)
--- NOTE | 2016-12-17 12:00 | NUR ---
FAMILY DECIDED TO WITHDRAW CARE. TF STOPPED AT THIS TIME. MIGHT HARVEST ORGANS IN 24-72 HOURS PER RN. NOT APPROPRIATE FOR NUTRITION INTERVENTION AT THIS TIME. PLEASE CONSULT IF CHANGE OF POC.
[2016-12-17 12:13] LABS: PCO2 31 mmHg (35-45); PO2 322 mmHg (80-90)
[2016-12-17 12:17] LABS: HEMOGLOBIN 10.7 g/dL (10.0-15.0); MCH 30.8 pg (27.0-34.0); MCHC 34.5 gm/dL (32.0-36.5); MCV 89.3 fl (83.0-98.0); MPV 13.1 fl (9.4-12.4); PLATELET COUNT 228 K/uL (150-450); RBC 3.47 M/uL (3.50-5.50)
[2016-12-17 12:21] LABS: WBC 19.4 K/uL (4.0-11.0)
[2016-12-17 12:26] LABS: BILIRUBIN URINE NEGATIVE (NEGATIVE); BLOOD URINE 150 /UL (NEGATIVE); COLOR URINE YELLOW (YELLOW); GLUCOSE URINE NEGATIVE (NEGATIVE); KETONE URINE NEGATIVE (NEGATIVE); LEUKOCYTES URINE NEGATIVE /UL (NEGATIVE); NITRITE URINE NEGATIVE (NEGATIVE); PROTEIN URINE 500 mg/dL (NEGATIVE); TURBIDITY URINE 1+ (CLEAR); UROBILINOGEN URINE NORMAL (NORMAL)
[2016-12-17 12:30] LABS: INR - (THERAPEUTIC) 1.21 (0.92-1.07); PROTIME 12.7 SECONDS (9.8-11.4); PTT 27 SECONDS (25-32)
[2016-12-17 12:37] LABS: BACTERIA URINE MODERATE (NEGATIVE); EPITHELIAL URINE 0-2 #/HPF (NEGATIVE); HYALINE CAST URINE 0-2 #/LPF (NEGATIVE); WBC URINE 0-2 #/HPF (NEGATIVE)
[2016-12-17 12:38] LABS: ANION GAP 14.2 (10.0-19.0); CALCIUM 8.3 mg/dL (8.5-10.5); CREATININE 1.1 mg/dL (0.5-1.1); MAGNESIUM 2.5 mg/dL (1.8-2.6); PHOSPHORUS 5.6 mg/dL (2.5-4.9); POTASSIUM 4.2 mMol/L (3.7-5.1); TOTAL PROTEIN 6.2 g/dL (6.0-8.4)
[2016-12-17 12:42] LABS: ALBUMIN 1.9 gm/dL (3.5-5.0); TOTAL BILIRUBIN 0.3 mg/dL (0.0-1.5)
[2016-12-17 12:48] LABS: ABSOLUTE NEUTROPHIL CT (ANC) 16.7 K/uL (1.8-7.8); BANDED NEUTROPHIL # 1.4 K/uL (0.0-0.1); BANDED NEUTROPHILS % 7 %; LYMPHOCYTE # 1.7 K/uL (0.8-4.0); LYMPHOCYTE % 9 %; MONOCYTE # 0.4 K/uL (0.0-1.0); SEGMENTED NEUTROPHIL # 15.3 K/uL (1.8-7.8); SEGMENTED NEUTROPHIL % 79 %
[2016-12-17 15:42] LABS: BICARBONATE 21.7 mmol/L (18.0-23.0); PCO2 32 mmHg (35-45)
[2016-12-17 15:43] LABS: PO2 473 mmHg (80-90)
--- NOTE | 2016-12-17 16:21 | NUR ---
Significant Events: Continue to work with NORS for placement of lungs, liver and kidneys. CT of chest this afternoon. Labs, xray, and CPT completed routinely.
[2016-12-17 16:56] LABS: BICARBONATE 21.4 mmol/L (18.0-23.0); PCO2 33 mmHg (35-45); PO2 193 mmHg (80-90)
[2016-12-17 16:58] LABS: HEMATOCRIT 28.3 % (33.0-46.0); HEMOGLOBIN 9.7 g/dL (10.0-15.0); MCHC 34.3 gm/dL (32.0-36.5); MCV 90.4 fl (83.0-98.0); MPV 13.1 fl (9.4-12.4); PLATELET COUNT 235 K/uL (150-450); RBC 3.13 M/uL (3.50-5.50); RDW-CV 11.9 % (11.9-14.6)
[2016-12-17 17:02] LABS: BILIRUBIN URINE NEGATIVE (NEGATIVE); BLOOD URINE 150 /UL (NEGATIVE); COLOR URINE YELLOW (YELLOW); GLUCOSE URINE NEGATIVE (NEGATIVE); KETONE URINE NEGATIVE (NEGATIVE); LEUKOCYTES URINE NEGATIVE /UL (NEGATIVE); NITRITE URINE NEGATIVE (NEGATIVE); PROTEIN URINE 100 mg/dL (NEGATIVE); SPEC GRAVITY URINE 1.015 (1.003-1.035); TURBIDITY URINE CLEAR (CLEAR); UROBILINOGEN URINE NORMAL (NORMAL)
[2016-12-17 17:03] LABS: WBC 18.7 K/uL (4.0-11.0)
[2016-12-17 17:11] LABS: INR - (THERAPEUTIC) 1.24 (0.92-1.07); PROTIME 13.1 SECONDS (9.8-11.4)
[2016-12-17 17:19] LABS: WBC URINE NEGATIVE #/HPF (NEGATIVE)
[2016-12-17 17:20] LABS: BACTERIA URINE MODERATE (NEGATIVE); EPITHELIAL URINE 0-2 #/HPF (NEGATIVE)
[2016-12-17 17:21] LABS: ALBUMIN 2.4 gm/dL (3.5-5.0); ANION GAP 13.6 (10.0-19.0); CALCIUM 8.1 mg/dL (8.5-10.5); CREATININE 1.1 mg/dL (0.5-1.1); MAGNESIUM 2.4 mg/dL (1.8-2.6); PHOSPHORUS 6.2 mg/dL (2.5-4.9); POTASSIUM 3.6 mMol/L (3.7-5.1); TOTAL PROTEIN 6.1 g/dL (6.0-8.4)
[2016-12-17 17:22] LABS: TOTAL BILIRUBIN 0.4 mg/dL (0.0-1.5)
[2016-12-17 17:48] LABS: ABSOLUTE NEUTROPHIL CT (ANC) 17.4 K/uL (1.8-7.8); BANDED NEUTROPHIL # 0.7 K/uL (0.0-0.1); BANDED NEUTROPHILS % 4 %; LYMPHOCYTE # 1.1 K/uL (0.8-4.0); LYMPHOCYTE % 6 %; MONOCYTE # 0.2 K/uL (0.0-1.0); SEGMENTED NEUTROPHIL # 16.6 K/uL (1.8-7.8); SEGMENTED NEUTROPHIL % 89 %
[2016-12-17 21:08] LABS: BICARBONATE 22.1 mmol/L (18.0-23.0)
[2016-12-17 21:09] LABS: PCO2 40 mmHg (35-45); PO2 399 mmHg (80-90)
[2016-12-17 23:36] LABS: INR - (THERAPEUTIC) 1.24 (0.92-1.07)
[2016-12-17 23:41] LABS: MAGNESIUM 2.4 mg/dL (1.8-2.6); PHOSPHORUS 6.7 mg/dL (2.5-4.9)
[2016-12-17 23:42] LABS: TOTAL BILIRUBIN 0.3 mg/dL (0.0-1.5)
[2016-12-18 00:33] LABS: BICARBONATE 22.1 mmol/L (18.0-23.0); PCO2 40 mmHg (35-45); PO2 418 mmHg (80-90)
[2016-12-18 04:09] LABS: HEMATOCRIT 27.9 % (33.0-46.0); HEMOGLOBIN 9.4 g/dL (10.0-15.0); MCH 30.8 pg (27.0-34.0); MCHC 33.7 gm/dL (32.0-36.5); MCV 91.5 fl (83.0-98.0); MPV 13.3 fl (9.4-12.4); PLATELET COUNT 210 K/uL (150-450); RBC 3.05 M/uL (3.50-5.50); RDW-CV 11.9 % (11.9-14.6)
[2016-12-18 04:11] LABS: WBC 19.4 K/uL (4.0-11.0)
--- NOTE | 2016-12-18 04:12 | NUR ---
Significant Event: Neurologically unchanged. VSS. Ventric open at all times. Drained 102 ml clear CSF. ICPs 1-8. Nuñez drained 1490 ml urine. Lasix 40mg and 60mg given. 100 ml 25% albumin given x2. 20 units regular insulin for blood glucose 192. Follow up: Find recipients
[2016-12-18 04:20] LABS: ALBUMIN 2.9 gm/dL (3.5-5.0); ANION GAP 17.4 (10.0-19.0); CALCIUM 7.9 mg/dL (8.5-10.5); CREATININE 1.3 mg/dL (0.5-1.1); POTASSIUM 3.4 mMol/L (3.7-5.1); TOTAL BILIRUBIN 0.3 mg/dL (0.0-1.5); TOTAL PROTEIN 6.5 g/dL (6.0-8.4)
[2016-12-18 04:30] LABS: BILIRUBIN URINE NEGATIVE (NEGATIVE); BLOOD URINE 250 /UL (NEGATIVE); COLOR URINE YELLOW (YELLOW); GLUCOSE URINE NEGATIVE (NEGATIVE); KETONE URINE NEGATIVE (NEGATIVE); LEUKOCYTES URINE NEGATIVE /UL (NEGATIVE); NITRITE URINE NEGATIVE (NEGATIVE); PROTEIN URINE 100 mg/dL (NEGATIVE); SPEC GRAVITY URINE 1.015 (1.003-1.035); TURBIDITY URINE 1+ (CLEAR); UROBILINOGEN URINE NORMAL (NORMAL)
[2016-12-18 04:38] LABS: BICARBONATE 22.7 mmol/L (18.0-23.0); PCO2 43 mmHg (35-45); PO2 379 mmHg (80-90)
[2016-12-18 04:55] LABS: BACTERIA URINE RARE (NEGATIVE); WBC URINE NEGATIVE #/HPF (NEGATIVE)
[2016-12-18 04:55] LABS: HEMATOCRIT 26.8 % (33.0-46.0); MCH 30.4 pg (27.0-34.0); MCHC 33.6 gm/dL (32.0-36.5); MCV 90.5 fl (83.0-98.0); MPV 12.7 fl (9.4-12.4); PLATELET COUNT 213 K/uL (150-450); RBC 2.96 M/uL (3.50-5.50); RDW-CV 11.8 % (11.9-14.6)
[2016-12-18 04:56] LABS: WBC 20.9 K/uL (4.0-11.0)
[2016-12-18 04:58] LABS: BILIRUBIN URINE NEGATIVE (NEGATIVE); BLOOD URINE 250 /UL (NEGATIVE); COLOR URINE YELLOW (YELLOW); GLUCOSE URINE NEGATIVE (NEGATIVE); KETONE URINE NEGATIVE (NEGATIVE); LEUKOCYTES URINE NEGATIVE /UL (NEGATIVE); NITRITE URINE NEGATIVE (NEGATIVE); PROTEIN URINE 100 mg/dL (NEGATIVE); SPEC GRAVITY URINE 1.015 (1.003-1.035); TURBIDITY URINE 1+ (CLEAR); UROBILINOGEN URINE NORMAL (NORMAL)
[2016-12-18 05:00] LABS: ALBUMIN 3.2 gm/dL (3.5-5.0); ANION GAP 13.2 (10.0-19.0); CALCIUM 7.9 mg/dL (8.5-10.5); CREATININE 1.3 mg/dL (0.5-1.1); POTASSIUM 3.2 mMol/L (3.7-5.1); TOTAL BILIRUBIN 0.5 mg/dL (0.0-1.5); TOTAL PROTEIN 6.7 g/dL (6.0-8.4)
[2016-12-18 05:02] LABS: INR - (THERAPEUTIC) 1.19 (0.92-1.07); PROTIME 12.5 SECONDS (9.8-11.4)
[2016-12-18 05:23] LABS: BACTERIA URINE RARE (NEGATIVE); MAGNESIUM 2.5 mg/dL (1.8-2.6); PHOSPHORUS 6.5 mg/dL (2.5-4.9); WBC URINE 0-2 #/HPF (NEGATIVE)
[2016-12-18 05:43] LABS: ABSOLUTE NEUTROPHIL CT (ANC) 18.4 K/uL (1.8-7.8); BANDED NEUTROPHIL # 0.6 K/uL (0.0-0.1); BANDED NEUTROPHILS % 3 %; LYMPHOCYTE # 0.2 K/uL (0.8-4.0); LYMPHOCYTE % 1 %; MONOCYTE # 0.2 K/uL (0.0-1.0); SEGMENTED NEUTROPHIL # 17.9 K/uL (1.8-7.8); SEGMENTED NEUTROPHIL % 92 %
[2016-12-18 06:11] LABS: BANDED NEUTROPHIL # 2.7 K/uL (0.0-0.1); BANDED NEUTROPHILS % 13 %; LYMPHOCYTE # 1.5 K/uL (0.8-4.0); LYMPHOCYTE % 7 %; MONOCYTE # 0.8 K/uL (0.0-1.0); SEGMENTED NEUTROPHIL # 15.3 K/uL (1.8-7.8); SEGMENTED NEUTROPHIL % 73 %
[2016-12-18 07:57] LABS: BICARBONATE 23.2 mmol/L (18.0-23.0); PCO2 44 mmHg (35-45); PO2 385 mmHg (80-90)
[2016-12-18 11:49] LABS: BILIRUBIN URINE NEGATIVE (NEGATIVE); BLOOD URINE 150 /UL (NEGATIVE); COLOR URINE YELLOW (YELLOW); GLUCOSE URINE NEGATIVE (NEGATIVE); KETONE URINE NEGATIVE (NEGATIVE); LEUKOCYTES URINE NEGATIVE /UL (NEGATIVE); NITRITE URINE NEGATIVE (NEGATIVE); PROTEIN URINE 100 mg/dL (NEGATIVE); TURBIDITY URINE CLEAR (CLEAR); UROBILINOGEN URINE NORMAL (NORMAL)
[2016-12-18 11:50] LABS: HEMATOCRIT 25.8 % (33.0-46.0); MCH 31.5 pg (27.0-34.0); MCHC 34.9 gm/dL (32.0-36.5); MCV 90.2 fl (83.0-98.0); MPV 13.2 fl (9.4-12.4); PLATELET COUNT 209 K/uL (150-450); RBC 2.86 M/uL (3.50-5.50); RDW-CV 11.8 % (11.9-14.6)
[2016-12-18 11:53] LABS: WBC 20.2 K/uL (4.0-11.0)
[2016-12-18 11:56] LABS: INR - (THERAPEUTIC) 1.2 (0.92-1.07); PROTIME 12.6 SECONDS (9.8-11.4)
[2016-12-18 12:09] LABS: BACTERIA URINE NEGATIVE (NEGATIVE); EPITHELIAL URINE RARE #/HPF (NEGATIVE); WBC URINE RARE #/HPF (NEGATIVE)
[2016-12-18 12:15] LABS: ALBUMIN 2.8 gm/dL (3.5-5.0); ALK PHOS 130 IU/L (33-138); ALT 55 IU/L (12-78); ANION GAP 13.1 (10.0-19.0); AST 12 IU/L (10-40); BLOOD UREA NITROGEN 50 mg/dL (6-24); CALCIUM 7.8 mg/dL (8.5-10.5); CHLORIDE 110 mMol/L (96-110); CO2 22 mMol/L (22-32); CREATININE 1.2 mg/dL (0.5-1.1); ESTIMATED GFR (MDRD EQUATION) 48; POTASSIUM 3.1 mMol/L (3.7-5.1); SODIUM 142 mMol/L (135-145); TOTAL PROTEIN 6.2 g/dL (6.0-8.4)
[2016-12-18 12:17] LABS: MAGNESIUM 2.5 mg/dL (1.8-2.6); PHOSPHORUS 6.5 mg/dL (2.5-4.9); TOTAL BILIRUBIN 0.2 mg/dL (0.0-1.5)
[2016-12-18 12:58] LABS: ABSOLUTE NEUTROPHIL CT (ANC) 18.8 K/uL (1.8-7.8); BANDED NEUTROPHILS % 5 %; LYMPHOCYTE % 5 %; MONOCYTE # 0.4 K/uL (0.0-1.0); SEGMENTED NEUTROPHIL # 17.8 K/uL (1.8-7.8); SEGMENTED NEUTROPHIL % 88 %
--- NOTE | 2016-12-18 20:59 | NUR ---
SIGNIFICANT EVENT: PATIENT ON PROPOFOL DRIP AND FENT DRIP. ALL SEDATION PAUSED FOR DURATION OF ALL ASSESSMENTS. PATIENT DOES NOT OPEN EYES SPONT, TO PAIN, OR TO VOICE. PUPILS EQUAL AND REACTIVE. PATIENT DOES NOT FOLLOW ANY COMMANDS. PATIENT EXTENDS TO PAIN IN BILAT UPPER EXTREMITIES. PATIENT HAD A VENTRIC IN PLACE AND OPEN AT ALL TIMES UNTIL 1753, ICP DC'D AT THIS TIME. ICP RANGE THIS SHIFT 5-7, 84ML CLEAR CSF DRAINED THIS HOUR. NO SPONT MOVEMENTS NOTED. PATIENT HAS BEEN I NSINUS RHYTHM THROUGHOUT THE SHIFT, HR 70-90S. PULSES PALPABLE THROUGHOUT. YUKI STABLE, SBP>90 MAP>65. AFEBRILE. PATIENT WAS ON THE VENT UNTIL 1822, EXTUBATED TO ROOM AIR FOR DCD. COMFORT CARES ORDER SET AND PROTOCOL FOLLOWED. LOWEST SATS THROUGHOUT THE FIRST HOUR POST EXTUBATTON LOW 60S. SEE EMAR FOR MEDS GIVEN FOR COMFORT CARES. OG WAS IN PLACE THROUGHOUT THE SHIFT, D/C'D WHEN EXTUBATED. NO BM. ZAMUDIO INTACT, ADEQUATE URINE OUTPUT. NO NEW SKIN ISSUES. BATH COMPLETED. REPOSITIONED EVERY 2 HOURS. PATIENT DOWN TO OR FOR DCD AT 1753. EXTUBATED AFTER PATIENT PREPED AT 1822. COMOFRT CARE ORDERS FOLLOWED FOR 1 HOUR (AND AFTER 1 HOUR), THEN PATIENT WAS NO LONGER A DCD CANIDATE. ART LINE, CENTRAL LINE D/C'D. PATIENT TRANSFEREED TO [facility]. DR. ZUNIGA, DR. MATA, AND DR. CHAIDEZ ARE THAT PATIENT DID NOT PASS AND IS NOW COMFOR CARES ON [facility].
== END 2016-12-19 01:00 | disposition expired | DRG 23 ==
LOC: GACC 18:13 → GICU 18:54 → GMSU 12-18 19:39
PROVIDERS: Anesthesiology; Family Medicine; Hospitalist; ADMIT Neurological Surgery
PROC: 009630Z Drainage of Cerebral Ventricle with Drainage Device, Percutaneous Approach (ICD-10-PCS; principal; 2016-12-06)
PROC: 0B9F8ZX Drainage of Right Lower Lung Lobe, Via Natural or Artificial Opening Endoscopic, Diagnostic (ICD-10-PCS; 2016-12-06)
PROC: 5A1935Z Respiratory Ventilation, Less than 24 Consecutive Hours (ICD-10-PCS; 2016-12-06)
PROC: 03HC33Z Insertion of Infusion Device into Left Radial Artery, Percutaneous Approach (ICD-10-PCS; 2016-12-16)
PROC: 05HN33Z Insertion of Infusion Device into Left Internal Jugular Vein, Percutaneous Approach (ICD-10-PCS; 2016-12-16)
PROC: 0BC88ZZ Extirpation of Matter from Left Upper Lobe Bronchus, Via Natural or Artificial Opening Endoscopic (ICD-10-PCS; 2016-12-16)
PROC: 0BC48ZZ Extirpation of Matter from Right Upper Lobe Bronchus, Via Natural or Artificial Opening Endoscopic (ICD-10-PCS; 2016-12-16)
PROC: 0BC68ZZ Extirpation of Matter from Right Lower Lobe Bronchus, Via Natural or Artificial Opening Endoscopic (ICD-10-PCS; 2016-12-16)
PROC: 0BC58ZZ Extirpation of Matter from Right Middle Lobe Bronchus, Via Natural or Artificial Opening Endoscopic (ICD-10-PCS; 2016-12-16)
DX: I61.3 Nontraumatic intracerebral hemorrhage in brain stem (principal); J96.01 Acute respiratory failure with hypoxia; G93.40 Encephalopathy, unspecified; R34 Anuria and oliguria; G91.9 Hydrocephalus, unspecified; E44.0 Moderate protein-calorie malnutrition; T68.XXXA Hypothermia, initial encounter; D62 Acute posthemorrhagic anemia; I16.1 Hypertensive emergency; Z51.5 Encounter for palliative care; Z66 Do not resuscitate; D72.829 Elevated white blood cell count, unspecified; E87.6 Hypokalemia; G40.909 Epilepsy, unspecified, not intractable, without status epilepticus; Z68.22 Body mass index [BMI] 22.0-22.9, adult; R40.2430 Glasgow coma scale score 3-8, unspecified time
CPT/HCPCS: A9270; C1751; J0360; J0461; J0690; J1644; J1940; J1956; J2060; J2250; J2270; J2370; J2704; J2930; J3010; J3370; J3480; J7030; J7040; J7050; J7060; P9047